=== PATIENT | male | born 1955 | race Caucasian/White ===

== ENCOUNTER → 2021-01-05 08:28 | Outpatient (REF) | payer MEDICARE, SELFPAY ==
--- NOTE | 2021-01-05 08:39 | CA_ITS ---
Transthoracic Echocardiogram Patient (Last, First, Middle): Jeffrey Haque, Gender: Male Date of : 1955 Age: 65 Procedure Date: 01/05/2021 Procedure Type: Transthoracic Echocardiogram Location: OP Height: 167.64 cm Weight: 92.99 kg BSA: 2.02 m2 Heart Rate: bpm BP: 134 / 80 mmHg Municipal Maintenance Worker: Referring MD: Evan Aguirre MD Symptoms: R01.1 NEW HEART MURMUR Study Quality: Fair ECG Rhythm: Sinus Conclusions: - The left ventricular systolic function is hyperdynamic. The visually estimated ejection fraction is >70%. - There is moderately increased left ventricular wall thickness. - The basal inferior and basal inferolateral segments are hypokinetic. - The left atrium is moderately dilated. - There is mild mitral valve regurgitation. - There is mild dilatation of the ascending aorta measuring 3.90 cm. Findings Left Ventricle Normal left ventricular cavity size. There is moderately increased left ventricular wall thickness. The left ventricular systolic function is hyperdynamic. The visually estimated ejection fraction is >70%. There is no evidence of regional wall motion abnormalities. E/E prime ratio is between 8 and 15 consistent with indeterminate filling pressures. Evidence suggests grade I (mild) diastolic dysfunction. LVOT gradient noted but there seems to be also mixing with the mitral jet and hence doubt accuracy. Wall Motion Rest Echo Findings The basal inferior and basal inferolateral segments are hypokinetic. Right Ventricle Normal right ventricular cavity size and systolic function. Atria The left atrium is moderately dilated. The right atrium is normal in size. Aortic Valve There is a normal trileaflet aortic valve. There is no aortic valve regurgitation. Gradients across aortic valve or elevated most likely from hyperdynamic stay. Doubt any significant aortic stenosis. Mitral Valve The mitral valve appears normal. There is mild mitral valve regurgitation. There is no mitral valve stenosis. Pulmonic Valve The pulmonic valve was not well visualized. Tricuspid Valve The tricuspid valve was not well visualized. There is trace tricuspid valve regurgitation. The pulmonary artery systolic pressure is normal. Great Vessels There is mild dilatation of the ascending aorta measuring 3.90 cm. Venous The inferior vena cava is normal in size and collapses greater than 50% with inspiration. Pericardium/Pleural There is no evidence of pericardial effusion. Prior Study Comparison No prior study available for comparison. Measurements 2D Linear Measurements IVSd: 1.57 0.6-0.9/0.6-1.0 cm LVIDd: 4.64 3.9-5.3/4.2-5.9 cm LVIDd Index: 2.30 2.4-3.2/2.2-3.1 cm/m2 LVIDs: 2.94 2.0-3.6 cm LVPWd: 1.46 0.7-1.1 cm Ao Root: 3.30 2.1-3.5 cm LA Diam: 4.50 2.7-3.8/3.0-4.0 cm LAIDs Index: 2.23 1.5-2.3 cm/m2 LV Mass: 365.37 67-162/88-224 g LV Mass Index: 180.88 43-95/49-115 g/m2 LVOT Diam: 2.20 3.0+(-)1.3 cm Mitral Valve MV Pk E: 0.78 MV PK A: 1.15 MV Decel Time: 333.00 E/A: 0.70 E'Lateral: 9.68 E'Medial: 5.11 E/E' Med: 15.30 E/E' Lat: 8.10 PHT: 97.00 MVA PHT: 2.27 Decel [place]: 2.34 Aortic Valve AoV Pk Chapo: 3.03 AoV Mn Chapo: 2.11 AoV VTI: 0.65 AoV Pk Grad: 37.00 Aov Mn Grad: 20.00 LESLIE Cont.VTI: 1.92 LVOT LVOT Pk Chapo: 1.39 LVOT Mn Chapo: 1.01 LVOT VTI: 0.33 LVOT Pk Grad: 8.00 LVOT Mn Grad: 5.00 LVOT Diam: 2.20 LVOT Area: 3.80 Diastolic Function MV Pk E: 0.78 MV Pk A: 1.15 E/A: 0.70 E'Medial: 5.11 E/E' Med: 15.30 E' Laterial: 9.68 E/E' Lat: 8.10 Right Ventricle TAPSE (mm): 30.00 TVS' Chapo: 20.00 Tricuspid Valve TR Pk Chapo: 2.47 TR Pk Grad: 24.00 Great Vessels Aorta Ao Root-2D: 3.30 2.0-3.7 cm Ao Asc: 3.90 2.1-3.4 cm Pulmonary Valve PV Pk Chapo: 1.14 Peak PV Grad: 5.00 Updated in Other Vendor System with Status of Final Herson Aleman MD electronically signed on 01/06/2021 11:02:09 AM with status of Final
== END ==
LOC: HO.CARD 08:28
PROVIDERS: PCP Internal Medicine; Visit Provider Internal Medicine
DX: R01.1 Cardiac murmur, unspecified (principal)
CPT/HCPCS: 93306

== ENCOUNTER → 2021-02-22 09:45 | Outpatient (REF) | payer MEDICARE, SELFPAY ==
--- NOTE | 2021-02-22 09:50 | CA_ITS ---
Acquisition Time: 2021-02-22 09:55:32 Total Exercise Time: 00:06:16 Test Indications: ABN ECHO Medications: SEE CHART Protocol: OLGA Max HR: 115 BPM 74% of Pred: 155 BPM Max BP: 178/088 mmHG Max Work Load: 7.4 METS Exercise stress test with exercise 6 min 16 sec of Olga protocol, achieving 74% MPHR and request to stop due to knee pain, with mild sob, no chest discomfort, without arrythmia, with normotensive response to exercise, with nondiagnostic EKG for ischemia due to suboptimal heart rate. Test reviewed with Dr Christopher. Called Dr Aguirre office with above report and recommended pharmacological nuclear stress test for further evaluation. Referred By: Evan Aguirre Overread By: KAIDEN WALKER
== END ==
LOC: HO.CARD 09:45
PROVIDERS: PCP Internal Medicine; Visit Provider Internal Medicine
DX: R93.1 Abnormal findings on diagnostic imaging of heart and coronary circulation (principal)
CPT/HCPCS: 93017

== ENCOUNTER → 2021-03-02 09:32 | Outpatient (REF) | payer MEDICARE, SELFPAY ==
--- NOTE | ~2021-03-02 | NM_ITS ---
Lexiscan Myocardial perfusion study Indication: Abnormal echocardiogram, assess for coronary disease and ischemia Technique: The patient was brought in for a Lexiscan perfusion study on 03/02/2021 and was injected 0.4 mg of Lexiscan intravenously. Within a minute of this injection 30 mCi of sestamibi was given intravenously. Images were obtained using the SPECT gamma camera interlaced with the gating device. Images were obtained in supine position. Resting perfusion study was performed on 03/07/2021. Patient was administered 30 mCi of sestamibi intravenously at rest. Images were then obtained in supine position. Total DLP 113mGy-cm. Images were processed with the software and compared side to side in short axis, horizontal long axis and vertical long axis views. Findings: Raw acquisition was reviewed. The stress perfusion study showed diminished tracer uptake along the basal inferior, basal inferior septal wall. There is improvement with CT attenuation correction and hence could be from diaphragmatic attenuation artifact The gated study shows normal LV systolic function with calculated LVEF of 65%. LV cavity is normal in size. The gated study shows basal inferior hypokinesis. Resting study shows diminished tracer uptake in the basal inferior and adjacent inferior septal wall. There is improvement with CT attenuation correction and hence could be from components of diaphragmatic attenuation artifact. Gating at rest reveals ejection fraction at 65%; basal inferior hypokinesis. The findings are consistent with fixed basal inferior defect but with improvement during CT attenuation correction. NM/NM milton perf SPECT rest & str Impression: 1. Myocardial perfusion imaging study shows fixed basal inferior/inferior septal defect but with improvement during CT attenuation correction. Could be from nontransmural infarct +/- diaphragmatic attenuation artifact. 2. Gated LVEF is 65% during stress and rest. 3. Transient ischemic dilatation not present. EKG component of the test reported separately.
--- NOTE | 2021-03-02 09:30 | CA_ITS ---
Acquisition Time: 2021-03-02 09:31:57 Total Exercise Time: 00:02:00 Test Indications: ABN ECHO Medications: SEE CHART Protocol: LEXISCAN Max HR: 169 BPM 109% of Pred: 155 BPM Max BP: 160/088 mmHG Max Work Load: 1.6 METS Pharmacological stress test with Lexiscan injection, while walking on treadmill, without anginal symptoms, without arrythmia, with normotensive response to injection, with nondiagnostic EKG for ischemia. Nuclear images pending. Test reviewed with Dr Rios. Referred By: Evan Aguirre Overread By: KAIDEN WALKER
== END ==
LOC: HO.CARD 09:32
PROVIDERS: Visit Provider Internal Medicine
DX: I34.0 Nonrheumatic mitral (valve) insufficiency (principal); R07.9 Chest pain, unspecified
CPT/HCPCS: 78452; 93017; A9500; J0280; J2785

== ENCOUNTER → 2021-03-16 08:35 | Outpatient (BNVA) | payer MEDICARE, SELFPAY | PROVIDERS: PCP Internal Medicine; Visit Provider Internal Medicine | DX: I25.10 Atherosclerotic heart disease of native coronary artery without angina pectoris (principal); I10 Essential (primary) hypertension | CPT/HCPCS: 93005; 99202 ==

== ENCOUNTER 2021-03-21 10:35 | Outpatient (REF) | payer MEDICARE, SELFPAY ==
[2021-03-21 10:57] LABS: MANUAL DIFF FLAG NO
[2021-03-21 11:23] LABS: Basophils Percent Auto 0.4 % (0-2); Eosinophils Absolute Auto 0.3 X10*3/uL (0.0-0.4); Eosinophils Percent Auto 4.8 % (0-4); Hematocrit 42.3 % (42.0-52.0); Hemoglobin 14.2 g/dl (14.0-18.0); Imm Gran Abs Auto 0.05 X10*3/uL (0.00-0.03); Lymphocytes Absolute Auto 2.3 X10*3/uL (1.2-4.9); Mean Corpuscular HGB Conc 33.6 g/dl (31.0-36.0); Mean Corpuscular Hemoglobin 29.8 pg (27.0-33.0); Mean Corpuscular Volume 88.9 fL (80.0-98.0); Mean Platelet Volume 10.3 fL (9.4-12.4); Monocytes Absolute Auto 0.5 X10*3/uL (0.1-1.2); Monocytes Percent Auto 9.5 % (2-11); Neutrophils Absolute Auto 2.2 x10*3/uL (2.0-8.3); Neutrophils Percent Auto 41.3 % (45-73); Platelet Count 182 X10*3/uL (160-400); Red Blood Count 4.76 X10*6/uL (4.60-5.80); Red Cell Distribution Width 11.9 % (11.0-16.0); White Blood Count 5.3 X10*3/uL (4.8-10.8)
[2021-03-21 11:29] LABS: Prothrombin Time 11.8 SEC (9.9-13.0)
[2021-03-21 12:33] LABS: Anion Gap 11 (12-20); Blood Urea Nitrogen 17 mg/dL (9-16); Calcium 9.6 mg/dL (8.4-10.2); Carbon Dioxide 30 mmol/L (22-29); Chloride 103 mmol/L (96-108); Estimated Glomerular Filt Rate > 60; Glucose Random 102 mg/dL (60-115); Potassium 4.6 mmol/L (3.3-5.1); Sodium 139 mmol/L (135-145)
== END 2021-03-21 10:36 | disposition home or self-care (01) ==
LOC: HO.LAB 10:35
PROVIDERS: PCP Internal Medicine; Visit Provider Internal Medicine
DX: I25.10 Atherosclerotic heart disease of native coronary artery without angina pectoris (principal)
CPT/HCPCS: 36415; 80048; 85025; 85610

== ENCOUNTER → 2021-04-04 14:59 | Outpatient (BNVA) | payer MEDICARE, SELFPAY | PROVIDERS: PCP Internal Medicine; Referring Provider Internal Medicine; Visit Provider Nurse Practitioner Family | DX: R94.31 Abnormal electrocardiogram [ECG] [EKG] (principal); Z98.890 Other specified postprocedural states | CPT/HCPCS: 99212 ==

== ENCOUNTER 2021-04-06 10:16 | Outpatient (REF) | payer MEDICARE, SELFPAY ==
[2021-04-06 12:00] LABS: Cholesterol 181 mg/dL; HDL Cholesterol 57 mg/dL; LDL Cholesterol Calculated 105 mg/dl; Triglycerides 95 mg/dL
== END 2021-04-06 10:17 | disposition home or self-care (01) ==
LOC: HO.LAB 10:16
PROVIDERS: Visit Provider Nurse Practitioner Family
DX: I10 Essential (primary) hypertension (principal); I25.10 Atherosclerotic heart disease of native coronary artery without angina pectoris
CPT/HCPCS: 36415; 80061

== ENCOUNTER 2021-04-19 10:50 | Outpatient (REF) | payer MEDICARE, SELFPAY ==
[2021-04-19 10:53] LABS: MANUAL DIFF FLAG NO
[2021-04-19 10:55] LABS: Basophils Percent Auto 0.5 % (0-2); Eosinophils Absolute Auto 0.2 X10*3/uL (0.0-0.4); Eosinophils Percent Auto 4.2 % (0-4); Hematocrit 44.2 % (42.0-52.0); Hemoglobin 14.4 g/dl (14.0-18.0); Imm Gran Abs Auto 0.03 X10*3/uL (0.00-0.03); Imm Gran Pct Auto 0.5 % (0.0-0.4); Lymphocytes Absolute Auto 2.4 X10*3/uL (1.2-4.9); Lymphocytes Percent Auto 40.8 % (20-40); Mean Corpuscular HGB Conc 32.6 g/dl (31.0-36.0); Mean Corpuscular Volume 92.1 fL (80.0-98.0); Mean Platelet Volume 10.7 fL (9.4-12.4); Monocytes Absolute Auto 0.5 X10*3/uL (0.1-1.2); Monocytes Percent Auto 9.4 % (2-11); Neutrophils Absolute Auto 2.6 x10*3/uL (2.0-8.3); Neutrophils Percent Auto 44.6 % (45-73); Platelet Count 150 X10*3/uL (160-400); Red Cell Distribution Width 12.3 % (11.0-16.0); White Blood Count 5.8 X10*3/uL (4.8-10.8)
== END 2021-04-19 10:51 | disposition home or self-care (01) ==
LOC: HO.LNP 10:50
PROVIDERS: PCP Internal Medicine; Visit Provider Internal Medicine
DX: D72.820 Lymphocytosis (symptomatic) (principal)
CPT/HCPCS: 85025

== ENCOUNTER 2021-06-23 11:28 | Outpatient (REF) | payer MEDICARE, SELFPAY ==
[2021-06-23 11:30] LABS: MANUAL DIFF FLAG NO
[2021-06-23 11:46] LABS: Basophils Percent Auto 0.4 % (0-2); Eosinophils Absolute Auto 0.3 X10*3/uL (0.0-0.4); Eosinophils Percent Auto 6.5 % (0-4); Hematocrit 40.2 % (42.0-52.0); Hemoglobin 12.9 g/dl (14.0-18.0); Imm Gran Abs Auto 0.02 X10*3/uL (0.00-0.03); Imm Gran Pct Auto 0.4 % (0.0-0.4); Lymphocytes Absolute Auto 2.4 X10*3/uL (1.2-4.9); Lymphocytes Percent Auto 49.9 % (20-40); Mean Corpuscular HGB Conc 32.1 g/dl (31.0-36.0); Mean Corpuscular Hemoglobin 28.7 pg (27.0-33.0); Mean Corpuscular Volume 89.3 fL (80.0-98.0); Mean Platelet Volume 11.1 fL (9.4-12.4); Monocytes Absolute Auto 0.6 X10*3/uL (0.1-1.2); Monocytes Percent Auto 11.9 % (2-11); Neutrophils Absolute Auto 1.5 x10*3/uL (2.0-8.3); Neutrophils Percent Auto 30.9 % (45-73); Platelet Count 158 X10*3/uL (160-400); Red Cell Distribution Width 12.9 % (11.0-16.0); White Blood Count 4.8 X10*3/uL (4.8-10.8)
== END 2021-06-23 11:29 | disposition home or self-care (01) ==
LOC: HO.LNP 11:28
PROVIDERS: PCP Internal Medicine; Visit Provider Internal Medicine
DX: D72.820 Lymphocytosis (symptomatic) (principal)
CPT/HCPCS: 85025

== ENCOUNTER 2021-09-20 10:34 | Outpatient (REF) | payer MEDICARE, SELFPAY ==
[2021-09-20 10:36] LABS: MANUAL DIFF FLAG NO
[2021-09-20 11:00] LABS: Basophils Percent Auto 0.5 % (0-2); Eosinophils Absolute Auto 0.2 X10*3/uL (0.0-0.4); Eosinophils Percent Auto 3.8 % (0-4); Hematocrit 40.6 % (42.0-52.0); Hemoglobin 13.2 g/dl (14.0-18.0); Imm Gran Abs Auto 0.05 X10*3/uL (0.00-0.03); Imm Gran Pct Auto 0.9 % (0.0-0.4); Lymphocytes Absolute Auto 2.2 X10*3/uL (1.2-4.9); Lymphocytes Percent Auto 37.9 % (20-40); Mean Corpuscular HGB Conc 32.5 g/dl (31.0-36.0); Mean Corpuscular Hemoglobin 29.7 pg (27.0-33.0); Mean Corpuscular Volume 91.2 fL (80.0-98.0); Mean Platelet Volume 11.5 fL (9.4-12.4); Monocytes Absolute Auto 0.5 X10*3/uL (0.1-1.2); Monocytes Percent Auto 8.5 % (2-11); Neutrophils Absolute Auto 2.8 x10*3/uL (2.0-8.3); Neutrophils Percent Auto 48.4 % (45-73); Platelet Count 168 X10*3/uL (160-400); Red Blood Count 4.45 X10*6/uL (4.60-5.80); Red Cell Distribution Width 13.1 % (11.0-16.0); White Blood Count 5.9 X10*3/uL (4.8-10.8)
== END 2021-09-20 10:35 | disposition home or self-care (01) ==
LOC: HO.LNP 10:34
PROVIDERS: Visit Provider Internal Medicine
DX: D72.820 Lymphocytosis (symptomatic) (principal)
CPT/HCPCS: 85025

== ENCOUNTER 2021-09-21 07:11 | Day surgery (SDC) | payer MEDICARE, SELFPAY ==
[2021-07-12 15:48] VITALS: BMI 31.6
--- NOTE | 2021-07-15 09:49 | HO.ANESPROP2 ---
HPI - Anesthesia Eval Consult details Narrative: Rescheduled to 09/2021 66yo M for Colonoscopy Optimized per cardiology if no new cardiac complaints. [facility] Active Problems Active Problems: All Active Problems (Updated 04/04/21 @ 16:25 by Suzette Martinez NP-C) Preop cardiovascular exam (Acute) Mitral regurgitation (Acute) LVH (left ventricular hypertrophy) (Acute) Old inferior wall myocardial infarction (Acute) S/P cardiac catheterization (Acute) Essential hypertension (Acute) Atherosclerotic cardiovascular disease (Acute) Past Medical History Medical History (Updated 07/15/21 @ 09:51 by Reena Vicente NP) Atherosclerotic cardiovascular disease LVH (left ventricular hypertrophy) Mitral regurgitation Old inferior wall myocardial infarction Family History Family History Mother No problems noted. Father No problems noted. Surgical History Surgical History (Updated 07/15/21 @ 12:12 by Mona Tolentino RN) History of left knee replacement Hx of arthroscopy of knee Hx of colonoscopy Social History Social History Alcohol intake: current Alcohol intake frequency: 3 or more drinks per day Patient Tobacco Use Status: Never used Tobacco Meds Allergies Allergy/AdvReac Type Severity Reaction Status Date / Time No Known Allergies Allergy Verified 04/04/21 15:02 Home Medications Medication Instructions Recorded Confirmed Last Taken Type lisinopril 10 1 tab PO DAILY 03/16/21 04/04/21 Unknown History mg-hydrochlorothiazide 12.5 mg tablet Exam Exam Date and Time: July 15, 2021 0949 Height,Weight and Vital Signs: Height 5 ft 5 in Weight 86.183 kg Pertinent Lab Results Pertinent Lab Results: Laboratory Tests 03/21/21 06/23/21 10:55 07:40 WBC 4.8 Hgb 12.9 L Hct 40.2 L Plt Count 158 L Sodium 139 Potassium 4.6 Chloride 103 Carbon Dioxide 30 H BUN 17 H Creatinine 0.84 Narrative Narrative: Per 03/2021 cardiac office note: Echo done to eval heart murmur on 01/05/2021 showing hyperdynamic EF greater than 70%, moderate LVH, basal inferior and basal inferior lateral segments hypokinetic, left atrium moderately dilated, mild MR, ascending aorta mildly dilated at 3.9 cm.? Patient underwent an exercise stress test on 02/22/2021 which was sub optimal to assess for ischemia.? He had a pharmacological nuclear stress test done on 03/02/2021 showing a fixed basal inferior and inferior septal defect that improves with CT attenuation, could be non transmural infarct plus or minus diaphragm attenuation.? He had no reports of chest discomfort.? He does have shortness of breath with activity.? He underwent a cardiac catheterization for further evaluation showing mild nonobstructive CAD.? Discussed results with Dr. Aleman.? The abnormal echocardiogram findings and abnormal nuclear stress test are suggestive of prior infarct involving the basal inferior region.? This could have been from coronary spasm at some point in time.? Patient does report a history of cocaine use when he was younger.? He does not recall any time where he thought he may have had an [place]. Spent time discussing all the findings with him and he states understanding. Assessment and Plan Assessment Anesthesia Assessment: Chart Reviewed
[2021-09-15 09:18] VITALS: BMI 31.6
--- NOTE | 2021-09-20 08:00 | HO.ANESPROP2 ---
Documented by User: Reena Vicente NP 09/20/21 08:02 HPI - Anesthesia Eval Consult details Narrative: 66yo M for Colonoscopy Daily ETOH Optimized per cardiology if no new cardiac complaints. [facility] Active Problems Active Problems: All Active Problems (Updated 07/15/21 @ 09:51 by Reena Vicente NP) Preop cardiovascular exam (Acute) S/P cardiac catheterization (Acute) Essential hypertension (Acute) Past Medical History Medical History Atherosclerotic cardiovascular disease Essential hypertension LVH (left ventricular hypertrophy) Mitral regurgitation Old inferior wall myocardial infarction Family History Family History Mother No problems noted. Father No problems noted. Surgical History Surgical History History of left knee replacement Hx of arthroscopy of knee Hx of colonoscopy S/P cardiac catheterization Social History Social History Alcohol intake: current Alcohol intake frequency: 0-2 drinks per day Patient Tobacco Use Status: Never used Tobacco Use of substances other than those prescribed or required for medical reasons: No Have you been hit, kicked, punched, or otherwise hurt by someone within the past year? If so, by whom?: No Are you DNR?: No Advance Directives: No Advance Directives Information Provided: Yes Recently lost weight without trying: No Nutrition Risks: No Nutritional Risk Meds Allergies Allergy/AdvReac Type Severity Reaction Status Date / Time No Known Allergies Allergy Verified 04/04/21 15:02 Home Medications Medication Instructions Recorded Confirmed Last Taken Type lisinopril 10 1 tab PO DAILY 03/16/21 04/04/21 Unknown History mg-hydrochlorothiazide 12.5 mg tablet Exam Exam Date and Time: September 20, 2021 0800 Height,Weight and Vital Signs: Height 5 ft 5 in Weight 86.183 kg Pertinent Lab Results Pertinent Lab Results: Laboratory Tests 03/21/21 06/23/21 10:55 07:40 WBC 4.8 Hgb 12.9 L Hct 40.2 L Plt Count 158 L Sodium 139 Potassium 4.6 Chloride 103 Carbon Dioxide 30 H BUN 17 H Creatinine 0.84 Narrative Narrative: Per 03/2021 cardiac office note: Echo done to eval heart murmur on 01/05/2021 showing hyperdynamic EF greater than 70%, moderate LVH, basal inferior and basal inferior lateral segments hypokinetic, left atrium moderately dilated, mild MR, ascending aorta mildly dilated at 3.9 cm.? Patient underwent an exercise stress test on 02/22/2021 which was sub optimal to assess for ischemia.? He had a pharmacological nuclear stress test done on 03/02/2021 showing a fixed basal inferior and inferior septal defect that improves with CT attenuation, could be non transmural infarct plus or minus diaphragm attenuation.? He had no reports of chest discomfort.? He does have shortness of breath with activity.? He underwent a cardiac catheterization for further evaluation showing mild nonobstructive CAD.? Discussed results with Dr. Aleman.? The abnormal echocardiogram findings and abnormal nuclear stress test are suggestive of prior infarct involving the basal inferior region.? This could have been from coronary spasm at some point in time.? Patient does report a history of cocaine use when he was younger.? He does not recall any time where he thought he may have had an [place]. Spent time discussing all the findings with him and he states understanding. Assessment and Plan Assessment Anesthesia Assessment: Chart Reviewed Documented by User: Kelsey Maldonado MD 09/21/21 08:16 [facility] Past Medical History Medical History Atherosclerotic cardiovascular disease Essential hypertension LVH (left ventricular hypertrophy) Mitral regurgitation Old inferior wall myocardial infarction Family History Family History Mother No problems noted. Father No problems noted. Family history of problems with anesthesia: No Surgical History Surgical History History of left knee replacement Hx of arthroscopy of knee Hx of colonoscopy S/P cardiac catheterization History of Problems with Anesthesia: No Social History Social History Alcohol intake: current Alcohol intake frequency: 0-2 drinks per day Patient Tobacco Use Status: Never used Tobacco Use of substances other than those prescribed or required for medical reasons: No Have you been hit, kicked, punched, or otherwise hurt by someone within the past year? If so, by whom?: No Are you DNR?: No Advance Directives: No Advance Directives Information Provided: Yes Recently lost weight without trying: No Nutrition Risks: No Nutritional Risk Meds Allergies Allergy/AdvReac Type Severity Reaction Status Date / Time No Known Allergies Allergy Verified 04/04/21 15:02 Home Medications Medication Instructions Recorded Confirmed Last Taken Type lisinopril 10 1 tab PO DAILY 03/16/21 04/04/21 Unknown History mg-hydrochlorothiazide 12.5 mg tablet Exam Airway Mallampati Class: II TM Dist: >3cm Neck ROM: Full Heart: rrr Lungs: cta Assessment and Plan Assessment Anesthesia Assessment: Anesthesia Plan Discussed and Chart Reviewed Final Anesthetic Review Family History of Problems with Anesthesia: No History of Problems with Anesthesia: No NPO: Yes ASA Class: III Final Preanesthetic Review: No Changes in Pt Med Stat, Meds/Allgs Chart Reviewed and Consent Obtained/Reviewed Patient Risk: Intermediate Procedure Risk: Intermediate Anesthetic Plan Anesthetic Plan: MAC: Disposition: Standard PACU
[2021-09-21] MEDS: Ampicillin Sodium 2 GM in 0.9 % Sodium Chloride 100 ML IV (07:47)
[2021-09-21] MEDS: Lactated Ringers 1,000 ML 100 ML IVCONT (07:47)
[2021-09-21 07:48] VITALS: BP 150/80; PULSE 52; RESP 18; TEMP 36.2; O2SAT 98; BMI 31.5
--- NOTE | 2021-09-21 09:43 | PM.OP ---
Brief Operative Note Date of Service: 09/21/21 Pre-op diagnosis: Screening Post-op diagnosis: other (Colon polyp) Procedure: Colonoscopy to the cecum with cold snare polypectomy Surgeon: Rubén Enriquez Anesthesia: MAC Was an It Risk And Assurance Manager used for this Procedure?: No Estimated blood loss (mL): 2.0 Pathology: other (A. Polyp at 15cm) Condition: stable Disposition: PACU
[2021-09-21 09:46] VITALS: BP 115/70; PULSE 67; RESP 20; TEMP 36.2; O2SAT 97
[2021-09-21 10:00] VITALS: BP 119/63; PULSE 51; RESP 16; TEMP 36.2; O2SAT 97
--- NOTE | 2021-09-21 21:28 | OP_ITS ---
SURGEON: Rubén Enriquez MD INDICATIONS: The patient presents for evaluation of personal history of tubular adenoma of the colon and colorectal cancer screening. Full consent obtained from him for this, including risks of bleeding and perforation. PREOPERATIVE DIAGNOSIS: Personal history of tubular adenoma of the colon, and colorectal cancer screening. POSTOPERATIVE DIAGNOSIS: Personal history of tubular adenoma of the colon, and colorectal cancer screening, small colon polyp, diverticulosis, internal hemorrhoids. PROCEDURE PERFORMED: Colonoscopy to the cecum with cold snare polypectomy. ESTIMATED BLOOD LOSS: COMPLICATIONS: ANESTHESIA: Monitored anesthesia care. ASSISTANTS: SPECIMENS: DESCRIPTION OF PROCEDURE: The patient was placed in the left lateral decubitus position. The digital rectal exam revealed no abnormalities. The Olympus video pediatric colonoscope was entered into the rectum and advanced easily to the cecum. Once in the cecum, I did identify normal-appearing cecal pouch with appendiceal orifice and a normal-appearing ileocecal valve. The entire cecum and ileocecal valve appeared normal. The scope was slowly withdrawn assessing all mucosal surfaces carefully. Preparation was excellent. At 15 cm, was an approximately 5 or 6 mm polyp, which was removed by cold snare polypectomy and recovered by suction. The polypectomy site appeared clean, without any sign of residual polyp, nor bleeding. I did not visualize any other polyps, colitis, or angiodysplasia. There was a moderate amount of diverticulosis noted in the ascending colon, descending colon, and sigmoid colon. In the rectum, scope was retroflexed visualizing internal hemorrhoids, but no other pathology. The rectal mucosa appeared normal. The scope was straightened and withdrawn the patient. He tolerated the procedure well and was returned to the recovery area in stable condition. IMPRESSION: 1. Colon polyp. 2. Diverticulosis. 3. Internal hemorrhoids. PLAN: The results of the pathology will be checked. I would recommend a repeat colonoscopy in 5 years for further surveillance. He was advised not to use any aspirin and NSAIDs for 1 week. He did receive antibiotics prior to the procedure in regard to his recent knee replacement and was given a prescription to use amoxicillin later today. MD EVERETT Licea/NAZIA / [id number]
== END 2021-09-21 11:33 | disposition home or self-care (01) ==
PROVIDERS: PCP Internal Medicine; Visit Provider Internal Medicine
PROC: 0DJD8ZZ Inspection of Lower Intestinal Tract, Via Natural or Artificial Opening Endoscopic (ICD-10-PCS; CPT 45378; principal; 2021-09-21 08:40)
DX: Z12.11 Encounter for screening for malignant neoplasm of colon (principal); Z86.010 Personal history of colon polyps; K63.5 Polyp of colon; K57.30 Diverticulosis of large intestine without perforation or abscess without bleeding; K64.8 Other hemorrhoids; I10 Essential (primary) hypertension; R01.1 Cardiac murmur, unspecified; Z79.82 Long term (current) use of aspirin; Z79.899 Other long term (current) drug therapy; Z96.652 Presence of left artificial knee joint
CPT/HCPCS: 45385; 88305; J0290; J1580

== ENCOUNTER 2021-11-09 11:54 | Outpatient (REF) | payer MEDICARE, SELFPAY ==
[2021-11-09 12:17] LABS: MANUAL DIFF FLAG NO
[2021-11-09 12:24] LABS: Basophils Percent Auto 0.3 % (0-2); Eosinophils Absolute Auto 0.2 X10*3/uL (0.0-0.4); Hematocrit 39.3 % (42.0-52.0); Hemoglobin 13.4 g/dl (14.0-18.0); Imm Gran Abs Auto 0.04 X10*3/uL (0.00-0.03); Imm Gran Pct Auto 0.6 % (0.0-0.4); Lymphocytes Absolute Auto 2.1 X10*3/uL (1.2-4.9); Lymphocytes Percent Auto 32.8 % (20-40); Mean Corpuscular HGB Conc 34.1 g/dl (31.0-36.0); Mean Corpuscular Hemoglobin 30.8 pg (27.0-33.0); Mean Corpuscular Volume 90.3 fL (80.0-98.0); Mean Platelet Volume 10.2 fL (9.4-12.4); Monocytes Absolute Auto 0.4 X10*3/uL (0.1-1.2); Monocytes Percent Auto 6.5 % (2-11); Neutrophils Absolute Auto 3.7 x10*3/uL (2.0-8.3); Neutrophils Percent Auto 56.8 % (45-73); Platelet Count 157 X10*3/uL (160-400); Red Blood Count 4.35 X10*6/uL (4.60-5.80); White Blood Count 6.4 X10*3/uL (4.8-10.8)
[2021-11-09 12:30] LABS: Prothrombin Time 11.4 SEC (10.0-13.1)
[2021-11-09 12:33] LABS: Partial Thromboplastin Time 32.9 SEC (26.0-36.4)
[2021-11-09 12:41] LABS: Anion Gap 14 (12-20); Blood Urea Nitrogen 19 mg/dL (9-16); Carbon Dioxide 28 mmol/L (22-29); Chloride 103 mmol/L (96-108); Estimated Glomerular Filt Rate > 60; Sodium 141 mmol/L (135-145)
[2021-11-09 13:26] LABS: Appearance Urine Clear; Color Urine Yellow; Glucose Urine UA Negative (Negative); Leukocyte Esterase Urine Negative (Negative); Nitrite Urine Negative (Negative); Urine Blood Negative (Negative); Urine Ketones Negative (Negative); Urine Protein Negative (Neg-Trace)
== END 2021-11-09 11:55 | disposition home or self-care (01) ==
LOC: HO.LAB 11:54
PROVIDERS: PCP Internal Medicine; Visit Provider Orthopaedic Surgery
DX: Z01.818 Encounter for other preprocedural examination (principal)
CPT/HCPCS: 36415; 80051; 81003; 82565; 84520; 85025; 85610; 85730

== ENCOUNTER 2023-06-05 10:55 | Outpatient (REF) | payer MEDICARE, SELFPAY ==
[2023-06-05 10:59] LABS: MANUAL DIFF FLAG NO
[2023-06-05 11:31] LABS: Basophils Absolute Auto 0.1 X10*3/uL (0.0-0.2); Eosinophils Absolute Auto 0.4 X10*3/uL (0.0-0.4); Eosinophils Percent Auto 7.8 % (0-4); Hematocrit 42.8 % (42.0-52.0); Hemoglobin 14.4 g/dl (14.0-18.0); Imm Gran Abs Auto 0.03 X10*3/uL (0.00-0.03); Imm Gran Pct Auto 0.6 % (0.0-0.4); Lymphocytes Absolute Auto 1.8 X10*3/uL (1.2-4.9); Mean Corpuscular HGB Conc 33.6 g/dl (31.0-36.0); Mean Corpuscular Hemoglobin 30.8 pg (27.0-33.0); Mean Corpuscular Volume 91.6 fL (80.0-98.0); Mean Platelet Volume 11.5 fL (9.4-12.4); Monocytes Absolute Auto 0.6 X10*3/uL (0.1-1.2); Monocytes Percent Auto 10.7 % (2-11); Neutrophils Absolute Auto 2.4 x10*3/uL (2.0-8.3); Neutrophils Percent Auto 45.9 % (45-73); Platelet Count 167 X10*3/uL (160-400); Red Blood Count 4.67 X10*6/uL (4.60-5.80); White Blood Count 5.2 X10*3/uL (4.8-10.8)
[2023-06-05 11:38] LABS: Appearance Urine Clear; Color Urine Yellow; Glucose Urine UA Negative (Negative); Leukocyte Esterase Urine Negative (Negative); Nitrite Urine Negative (Negative); Urine Blood Negative (Negative); Urine Ketones Negative (Negative); Urine Protein Negative (Neg-Trace)
[2023-06-05 11:41] LABS: Bacteria Urine None Seen (None Seen); Hyaline Casts Urine 0-2 /LPF (0-2); RBC Urine 0-2 /HPF (0-2); Squamous Epithelial Cell Urine 0-2 /HPF (0-2); WBC Urine 0-5 /HPF (0-5)
[2023-06-05 12:01] LABS: Alanine Aminotransferase 22 U/L (0-40); Albumin Level 4.2 g/dL (3.5-5.0); Alkaline Phosphatase 80 U/L (39-117); Anion Gap 12 (12-20); Aspartate Amino Transferase 24 U/L (5-37); Bilirubin Total 0.6 mg/dL (0.0-1.0); Blood Urea Nitrogen 14 mg/dL (9-16); Calcium 9.5 mg/dL (8.4-10.2); Carbon Dioxide 26 mmol/L (22-29); Chloride 107 mmol/L (96-108); Cholesterol 151 mg/dL (<200); Estimated Glomerular Filt Rate > 60; Glucose Fasting 102 mg/dL (60-99); HDL Cholesterol 53 mg/dL (>40); LDL Cholesterol Calculated 67 mg/dL (<100); Potassium 3.9 mmol/L (3.3-5.1); Sodium 141 mmol/L (135-145); Total Protein 6.8 g/dL (6.5-8.0); Triglycerides 156 mg/dL (<150)
[2023-06-05 12:12] LABS: PSA,Total (Free>4and<10) 0.55 ng/mL (0.00-4.00)
[2023-06-05 12:45] LABS: Creatinine Urine 146.53 mg/dL; Microalbumin Urine < 5.0 mg/L
[2023-06-05 15:12] LABS: Estimated Average Glucose 108 mg/dL; Hemoglobin A1c % 5.4 % (<6.0)
== END 2023-06-05 10:56 | disposition home or self-care (01) ==
LOC: HO.LNP 10:55
PROVIDERS: Visit Provider Internal Medicine
DX: Z00.00 Encounter for general adult medical examination without abnormal findings (principal); Z12.5 Encounter for screening for malignant neoplasm of prostate; I10 Essential (primary) hypertension; R73.03 Prediabetes; D72.820 Lymphocytosis (symptomatic)
CPT/HCPCS: 80053; 80061; 81001; 82043; 82570; 83036; 84153; 85025

== ENCOUNTER 2023-12-07 11:15 | Outpatient (REF) | payer MEDICARE, SELFPAY ==
[2023-12-07 12:12] LABS: Estimated Average Glucose 108 mg/dL; Hemoglobin A1c % 5.4 % (<6.0); Total Hemoglobin (HGBA1C) 3628.0846 umol/L
[2023-12-07 13:28] LABS: Alanine Aminotransferase 31 U/L (0-40); Albumin Level 4.1 g/dL (3.5-5.0); Alkaline Phosphatase 84 U/L (39-117); Aspartate Amino Transferase 40 U/L (5-37); Bilirubin Direct 0.2 mg/dL (0.0-0.5); Bilirubin Total 0.4 mg/dL (0.0-1.0); Cholesterol 140 mg/dL (<200); Glucose Fasting 112 mg/dL (60-99); HDL Cholesterol 53 mg/dL (>40); LDL Cholesterol Calculated 69 mg/dL (<100); Total Protein 6.6 g/dL (6.5-8.0); Triglycerides 92 mg/dL (<150)
[2023-12-07 13:58] LABS: Reflex LDLD? No
== END 2023-12-07 11:16 | disposition home or self-care (01) ==
LOC: HO.LNP 11:15
PROVIDERS: Visit Provider Internal Medicine
DX: R73.09 Other abnormal glucose (principal); I25.10 Atherosclerotic heart disease of native coronary artery without angina pectoris
CPT/HCPCS: 80061; 80076; 82947; 83036

== ENCOUNTER 2024-06-06 10:29 | Outpatient (REF) | payer MEDICARE, SELFPAY ==
[2024-06-06 10:34] LABS: MANUAL DIFF FLAG NO
[2024-06-06 10:42] LABS: Basophils Percent Auto 0.8 % (0-2); Eosinophils Absolute Auto 0.3 X10*3/uL (0.0-0.4); Eosinophils Percent Auto 5.3 % (0-4); Hematocrit 41.1 % (42.0-52.0); Hemoglobin 13.5 g/dl (14.0-18.0); Imm Gran Abs Auto 0.02 X10*3/uL (0.00-0.03); Imm Gran Pct Auto 0.4 % (0.0-0.4); Lymphocytes Absolute Auto 1.7 X10*3/uL (1.2-4.9); Lymphocytes Percent Auto 33.5 % (20-40); Mean Corpuscular HGB Conc 32.8 g/dl (31.0-36.0); Mean Corpuscular Hemoglobin 29.9 pg (27.0-33.0); Mean Corpuscular Volume 90.9 fL (80.0-98.0); Monocytes Absolute Auto 0.4 X10*3/uL (0.1-1.2); Monocytes Percent Auto 8.2 % (2-11); Neutrophils Absolute Auto 2.7 x10*3/uL (2.0-8.3); Neutrophils Percent Auto 51.8 % (45-73); Platelet Count 177 X10*3/uL (160-400); Red Blood Count 4.52 X10*6/uL (4.60-5.80); Red Cell Distribution Width 12.5 % (11.0-16.0); White Blood Count 5.1 X10*3/uL (4.8-10.8)
[2024-06-06 10:54] LABS: Appearance Urine Clear; Color Urine Yellow; Glucose Urine UA Negative (Negative); Leukocyte Esterase Urine Negative (Negative); Nitrite Urine Negative (Negative); PH 5.5 (5.0-9.0); Urine Blood Negative (Negative); Urine Ketones Trace mg/dL (Negative); Urine Protein Negative (Neg-Trace)
[2024-06-06 11:01] LABS: Bacteria Urine None Seen (None Seen); Hyaline Casts Urine 0-2 /LPF (0-2); RBC Urine 0-2 /HPF (0-2); Squamous Epithelial Cell Urine 0-2 /HPF (0-2); WBC Urine 0-5 /HPF (0-5)
[2024-06-06 11:04] LABS: Alanine Aminotransferase 39 U/L (0-40); Albumin Level 4.1 g/dL (3.5-5.0); Alkaline Phosphatase 89 U/L (39-117); Anion Gap 11 (12-20); Aspartate Amino Transferase 37 U/L (5-37); Bilirubin Total 0.4 mg/dL (0.0-1.0); Blood Urea Nitrogen 15 mg/dL (9-16); Calcium 9.3 mg/dL (8.4-10.2); Carbon Dioxide 29 mmol/L (22-29); Chloride 107 mmol/L (96-108); Estimated Glomerular Filt Rate > 60; Glucose Fasting 103 mg/dL (60-99); Sodium 143 mmol/L (135-145); Total Protein 6.4 g/dL (6.5-8.0)
[2024-06-06 11:12] LABS: Estimated Average Glucose 105 mg/dL; Hemoglobin A1C 121.4524 umol/L; Hemoglobin A1c % 5.3 % (<6.0); Total Hemoglobin (HGBA1C) 3508.4698 umol/L
[2024-06-06 11:13] LABS: PSA,Total (Free>4and<10) 0.69 ng/mL (0.00-4.00)
[2024-06-06 11:24] LABS: Creatinine Urine 168.84 mg/dL; Microalbum/Creatinine Ratio Ur 4.1 ug/mg cr (<30)
--- OUTSIDE RECORDS SUMMARY | 2024-06-06 11:33 | XMS_ITS ---
Author Organization Evan Aguirre MD Address [address] [place], [place] [phone] Care Team Providers Care Medical Clerical Assistant Name Role Phone Evan Aguirre Primary Care Provider REASON FOR VISIT Derm Encounters Encounter Location Date Provider Diagnosis Evan Aguirre MD [address] [place], [place] [phone] 05/08/2024 Evan Aguirre Plan Of Treatment Next Appt Details Provider Name:Evan Lucas ier, 06/13/2024 01:00:00 PM, [address], [address], [place], [place], [phone], Progress Notes * Jeffrey WILSON WDOB:1955 (68 yo M)Acc No.[id number]:05/08/2024 Patient:?Jeffrey WILSON :1955???Age:68 Y???Sex:Male Address:[address] [place] [address] * true * Date:? Generated for Jr garcia/Gregg/Brynitting on:?06/06/2024 11:32 AM EDT
--- OUTSIDE RECORDS SUMMARY | 2024-06-06 11:33 | XMS_ITS ---
Author Organization Evan Aguirre MD Address [address] [place], [place] [phone] Care Team Providers Care Accounting Administrator Name Role Phone Evan Aguirre Primary Care Provider Results Component Value Reference Range Notes Complete Blood Count Auto Di ff (Not yet reviewed by provider) Interpretation: Performing Lab:[facility], [address] [place] [phone] Notes/Report: White Blood Count 5.1 4.8-10.8 X10*3/uL [...] NRBC Abs Auto 0.000 0.0-0.012 X10*3/uL Comprehensive [place]. Panel Fa st (Not yet reviewed by provider) Interpretation: Performing Lab:[facility], [address] [place] [phone] Notes/Report: Sodium 143 135-145 mmol/L Potassium 4.0 [...] Alkaline Phosphatase 89 39-117 U/L PSA,Total (Free>4and<10) (No t yet reviewed by provider) Interpretation: Performing Lab:[address] [phone] Notes/Report: PSA,Total (Free>4and<10) 0.69 0.00-4.00 ng/mL A [...] i Chemiluminescent Microparticle Immunoassay (CMIA) Microalbumin, Random (Not ye t reviewed by provider) Interpretation: Performing Lab:[address] [phone] Notes/Report: Creatinine Urine 168.84 Microalbumin Urine 7.0 Microalbum/Creatinine Ratio Ur 4.1 <30 ug/mg cr Albumin/Creatinine Ratio Reference Ranges: Normal: < 30 ug/mg creatinine Microalbuminuria: 30 - 300 ug/mg creatinine Clinical Albuminuria: > 300 ug/mg creatinine Hemoglobin A1c (Not yet revi ewed by provider) Interpretation: Performing Lab:[address] [phone] Notes/Report: Hemoglobin A1c % 5.3 <6.0 % [...] average glucose, using the formula of the D0Q-Yvenaqf Average Glucose study (ADAG), Diabetes Care, Vol.31,#8, 2007 UA ClnCatch+Micro w/rflx Cul t (Not yet reviewed by provider) Interpretation: Performing Lab:[address] [phone] Notes/Report: Urine, Clean Catch Color Urine Yellow Appearance Urine Clear PH 5.5 5.0-9.0 Glucose Urine UA Negative Negative mg/dL Urine Blood Negative Negative Specific [place] - Urine 1.020 1.005-1.025 Urine Protein Negative [...] Location Date Provider Diagnosis Evan Aguirre MD [address] [place] [address] Drive [address] [place] [phone] 06/06/2024 Evan Aguirre Blood tests for routine [...] Treatment Pending Test Test Name Order Date Complete Blood Count Auto Diff Comprehensive [employer]. Panel Fast Lipid Panel 06/06/2024 PSA,Total (Free>4and<10) 06/06/2024 Microalbumin, Random 06/06/2024 Hemoglobin A1c 06/06/2024 UA ClnCatch+Micro w/rflx Cult 06/06/2024 Next Appt Details Provider Name:Evan garcia, 06/13/2024 01:00:00 PM, [address] [place] [address] Drive, [address], [place], [place], [phone], Progress Notes * Jeffrey WILSON WDOB:1955 (68 yo M)Acc No.[id number]:06/06/2024 Progress Note Patient:?KATIE, Jeffrey W Provider:?Evan Aguirre MD :1955???Age:68 Y???Sex:Male Hipolito e:06/06/2024 Address[place] [id number] Subjective: * Chief Complaints: * ???1. FASTING LABS. * Medical History:? Objective: * Vitals:? Assessment: * Assessment: 1.?Blood tests for routine g eneral physical examination - Z00.00 (Primary)???2.?Essential hypertension - I10???3.?Prediabetes - R73.09???4.?Lymphocytosis - D72.820??? Plan: * Treatment: 2.?Essential hypertension?LAB: Complete Blood Count Auto Diff (Collection Date & Time - 06/06/2024 07:15 AM) ?LAB: Comprehensive [place]. Panel Fast (Collection Date & Time - 06/06/2024 07:15 AM) ?LAB: Lipid Panel ?LAB: PSA,Total (Free>4and<10) (Collection Date & Time - 06/06/2024 07:15 AM) ?LAB: Microalbumin, Random (Collection Date & Time - 06/06/2024 07:15 AM) ?LAB: Hemoglobin A1c (Collection Date & Time - 06/06/2024 07:15 AM) ?LAB: UA ClnCatch+Micro w/rflx Cult (Collection Date & Time - 06/06/2024 07:15 AM) 3.?Prediabetes?LAB: Complete Blood Count Auto Diff (Collection Date & Time - 06/06/2024 07:15 AM) ?LAB: Comprehensive [place]. Panel Fast (Collection Date & Time - 06/06/2024 07:15 AM) ?LAB: Lipid Panel ?LAB: PSA,Total (Free>4and<10) (Collection Date & Time - 06/06/2024 07:15 AM) ?LAB: Microalbumin, Random (Collection Date & Time - 06/06/2024 07:15 AM) ?LAB: Hemoglobin A1c (Collection Date & Time - 06/06/2024 07:15 AM) ?LAB: UA ClnCatch+Micro w/rflx Cult (Collection Date & Time - 06/06/2024 07:15 AM) 4.?Lymphocytosis?LAB: Complete Blood Count Auto Diff (Collection Date & Time - 06/06/2024 07:15 AM) ?LAB: Comprehensive [place]. Panel Fast (Collection Date & Time - 06/06/2024 07:15 AM) ?LAB: Lipid Panel ?LAB: PSA,Total (Free>4and<10) (Collection Date & Time - 06/06/2024 07:15 AM) ?LAB: Microalbumin, Random (Collection Date & Time - 06/06/2024 07:15 AM) ?LAB: Hemoglobin A1c (Collection Date & Time - 06/06/2024 07:15 AM) ?LAB: UA ClnCatch+Micro w/rflx Cult (Collection Date & Time - 06/06/2024 07:15 AM) * Procedure Codes:?29978 VENIP UNCT, ROUTINE* * * The named appointment provid er may or may not be the originator of this progress note, and it is not deemed complete until electronically signed by the appointment provider. Sign off status: Pending * Provider:?Evan Aguirre MD Date:?0 06/06/2024 Generated for Jr garcia/Gregg/eTransmitting on:?06/06/2024 11:33 AM EDT
--- OUTSIDE RECORDS SUMMARY | 2024-06-06 11:33 | XMS_ITS ---
Author Organization Evan Aguirre MD Address [address] [place], [place] [phone] Care Team Providers Care Tanner Rotary Drum Continuous Process Name Role Phone Evan Aguirre Primary Care Provider Allergies No Known Allergies Results Component Value [...] kg/m2 05/01/2024 weight is down 5 pounds [facility] e 12-14-23 Encounters Encounter Location Date Provider Diagnosis Evan Aguirre MD [address] [place], [place] [phone] 05/01/2024 Evan Aguirre Prediabetes R73.09 ; Essential [...] will observe Next Appt Details Provider Name:Evan Lucas ier, 06/13/2024 01:00:00 PM, [address], [address], [place], [place], [phone], Progress Notes * Jeffrey WILSON WDOB:1955 (68 yo M)Acc No.[id number]:05/01/2024 Progress Notes Patient:?Jeffrey WILSON W Provider:?Evan Aguirre MD :1955???Age:68 Y???Sex:Male Hipolito e:05/01/2024 Address:[address] [place], [place] [phone] Subjective: * Chief Complaints: * ???3 month * HPI: ???Symptom(s):?patient is a 69 yo male here for 3 month follow up of bp. gets up and feels a little dizzy at times. * ROS:?General/Constitutional:?Denies?Chills.?Denies?Fatigue.?Denies?Fever.?Denies?Headache.?ENT:?Denies?Sore throat.?Respiratory:?Denies?Cough.?Denies?Shortness of breath at rest.?Denies?Shortness of breath with exertion.?Cardiovascular:?Denies?Chest pain at rest.?Denies?Chest pain with exertion.?Admits?Dizziness.?Denies?Palpitations.?Denies?Shortness of breath.?Gastrointestinal:?Denies?Diarrhea.? * Medical History:? * Surgical History:? * Hospitalization/Major Diagno stic Procedure:? * Medications:?TakingAtorvasta tin Calcium 40 MG Tablet 1 tablet Orally [...] reviewed and reconciled with the patient * Allergies:?N.K.D.A.yes[Aller gies Verified] Objective: * Vitals:?Ht: 66, Wt: 198, BMI :31.95, BP:124/76, Repeat BP:130/75, Wt-k.81. weight is down 5 pounds since 12-14-23. * Examination: ???General Examination: ?GENERAL APPEARANCE:?alert, well hydrated, in no distress.?HEAD:?normocephalic.?SKIN:?abnormal left index finger with an area of abnormal growth. no evidence of any melenoma.?HEART:?no murmurs, rubs, gallops, regular rate and rhythm.?LUNGS:?no wheezes, rales, rhonchi, good air movement, clear to auscultation bilaterally.? Assessment: * Assessment: 1.?Essential hypertension - I10 (Primary)???2.?Prediabetes - R73.09???3.?Nail abnormality - L60.9??? Plan: * Treatment: 2.?Prediabetes?LAB: Hemoglobin A1c (Collection Date & Time - 05/01/2024) ? Value Reference Range ?Hemoglobin A1c 5.1 ?LAB: Glucose, finger stick (Collection Date & Time - 05/01/2024)* ? Value Reference Range ?Value 90 Notes: stable, no need formedication at this time??3.?Nail abnormality? Notes: will observe?? * Procedure Codes:?20749 ASSAY , GLUCOSE, BLOOD QUANT, Modifiers: QW 30841 GLYCATED HEMOGLOBIN TEST, Modifiers: QW * * Sign off status: Completed true * Provider:?Evan Aguirre MD Date:?0 05/01/2024 Generated for Sophiai ng/Fasammig/eTransmitting on:?06/06/2024 11:32 AM EDT History and Physical Notes * HPI (History [...]
--- OUTSIDE RECORDS SUMMARY | 2024-06-06 11:33 | XMS_ITS | Encounter Summary ---
Author Organization [facility] Address [address] [place] [address] Care Team Providers Care Supply Chain Engineer Name Role Phone Unavailable Primary Care Provider Unavailabl e Encounter Details Date Type Department Care Team (Late st Contact Info) Description 05/03/2022 Erroneous Encounter [facility] CONVERSION DEPT [address] [place] [address] Jeffrey Morin MD [address] [place] [address] Social History Tobacco Use Types Packs/Day Years Used Date Smoking Tobacco: Never Assessed Sex and Gender Information Value Date Recorded Sex Assigned at Not on file Legal Sex Male 7:32 AM EST Gender Identity Not on file Sexual Orientation Not on file documented as of this encounter Plan of Treatment Not on file documented as of this encounter Visit Diagnoses Not on filedocumented in this encounter
--- OUTSIDE RECORDS SUMMARY | 2024-06-06 11:33 | XMS_ITS | Clinical Summary ---
Author Organization [facility] Address [address] [place] [address] Care Team Providers Care Assistant Analyst Name Role Phone Unavailable Primary Care Provider Unavailabl e Allergies No known active allergies Encounters Date Type Department Care Team Description 03/17/2024 Refill [facility] [address] [phone] Jeffrey Morin MD Prophylactic antibiotic (Primary Dx) from Last 3 Months Social History Tobacco Use Types Packs/Day Years Used Date Smoking Tobacco: Never Assessed Sex and Gender Information Value Date Recorded Sex Assigned at Not on file Legal Sex Male 7:32 AM EST Gender Identity Not on file Sexual Orientation Not on file Plan of Treatment Health Maintenance Due Date Last Done Comments Hepatitis C Virus Screening 1955 DTaP/Tdap/Td Vaccines (1 - Tdap) 07/04/1974 Pneumococcal Vaccines 50+ (1 of 1 - PCV) 07/04/2005 Zoster (Shingles) Vaccine (1 of 2) 07/04/2005 COVID-19 Vaccine ( - 2023-2 5 season) 2023 RSV Vaccine 60 years and old er and Patients (1 - 1-dose 75+ series) 07/04/2030 Hepatitis B Vaccines Aged Out No long er eligible based on patient's age to complete this topic
--- OUTSIDE RECORDS SUMMARY | 2024-06-06 11:33 | XMS_ITS | Encounter Summary ---
Author Organization [facility] Address [address] [place] [address] Care Team Providers Care Glaze Wiper Name Role Phone Unavailable Primary Care Provider Unavailabl e Encounter Details Date Type Department Care Team (Late st Contact Info) Description 11/24/2021 Erroneous Encounter [facility] CONVERSION DEPT [address] [facility] [place] [phone] Rose Mary Kaplan MD [address] [place] [phone] Social History Tobacco Use Types Packs/Day Years [...]
--- OUTSIDE RECORDS SUMMARY | 2024-06-06 11:33 | XMS_ITS | Encounter Summary ---
Author Organization [facility] Address [address] [place] [address] Care Team Providers Care Camp Cook Name Role Phone Unavailable Primary Care Provider Unavailabl e Encounter Details Date Type Department Care Team (Late st Contact Info) Description 12/14/2021 Erroneous Encounter [facility] CONVERSION DEPT [address] [place] [address] Provider, MD Paz Social History Tobacco Use Types Packs/Day Years [...]
--- OUTSIDE RECORDS SUMMARY | 2024-06-06 11:33 | XMS_ITS | Encounter Summary ---
Author Organization [facility] Address [address] [place] [address] Care Team Providers Care Euclid Operator Name Role Phone Unavailable Primary Care Provider Unavailabl e Encounter Details Date Type Department Care Team (Late st Contact Info) Description 04/27/2021 Erroneous Encounter [facility] CONVERSION DEPT [address] [place] [address] Provider, MD Paz Social History [...]
--- OUTSIDE RECORDS SUMMARY | 2024-06-06 11:33 | XMS_ITS | Patient Health Record ---
Author Organization Evan Aguirre MD Address [address] [place], [place] [id number] Care Team Providers Care Auto Claims Adjuster Name Role Phone Evan Aguirre Primary Care Provider Allergies No Known Allergies Results Component Value Reference Range Notes Hemoglobin A1c Reviewed date:05/01/2024 11:08:58 AM Interpretation: Performing Lab: Notes/Report: Hemoglobin A1c 5.1 Liver Panel Reviewed date:12/07/2023 05:11:47 PM Interpretation: Performing Lab:[facility], [address] [place] [phone] Notes/Report: Bilirubin Total 0.4 0.0-1.0 mg/dL Bilirubin Direct 0.2 0.0-0.5 mg/dL Aspartate Amino Transferase 40 5-37 U/L Alanine Aminotransferase 31 0-40 U/L Total Protein 6.6 6.5-8.0 g/dL Albumin Level 4.1 3.5-5.0 g/dL Alkaline Phosphatase 84 39-117 U/L Glucose Fasting Reviewed date:12/07/2023 02:33:56 PM Interpretation: Performing Lab:[facility], [address] [place] [phone] Notes/Report: Glucose Fasting 112 60-99 mg/dL A fasting glucose from 100-125 mg/dl is considered impaired (pre-diabetes). Lipid Panel with Reflex Reviewed date:12/07/2023 02:34:15 PM Interpretation: Performing Lab:[facility], [address] [place] [phone] Notes/Report: Triglycerides 92 <150 mg/dL Desirable Triglyceride: [...] A1c Reviewed date:12/07/2023 12:44:18 PM Interpretation: Performing Lab:[facility], [address] [place] [phone] Notes/Report: Hemoglobin A1c % 5.4 <6.0 % [...] average glucose, using the formula of the E3T-Qzscluy Average Glucose study (ADAG), Diabetes Care, Vol.31,#8, 2007 Complete Blood Count Auto Di ff (Not yet reviewed by provider) Interpretation: Performing Lab:[facility], [address] [place] [phone] Notes/Report: White Blood Count 5.1 4.8-10.8 X10*3/uL [...] NRBC Abs Auto 0.000 0.0-0.012 X10*3/uL Comprehensive [place]. Panel Fa st (Not yet reviewed by provider) Interpretation: Performing Lab:[facility], [address] [place] [phone] Notes/Report: Sodium 143 135-145 mmol/L Potassium 4.0 [...] t yet reviewed by provider) Interpretation: Performing Lab:[address] [phone] Notes/Report: PSA,Total (Free>4and<10) 0.69 0.00-4.00 ng/mL A [...] ye t reviewed by provider) Interpretation: Performing Lab:[address] [phone] Notes/Report: Creatinine Urine 168.84 Microalbumin Urine 7.0 Microalbum/Creatinine Ratio Ur 4.1 <30 ug/mg cr Albumin/Creatinine Ratio Reference Ranges: Normal: < 30 ug/mg creatinine Microalbuminuria: 30 - 300 ug/mg creatinine Clinical Albuminuria: > 300 ug/mg creatinine Hemoglobin A1c (Not yet revi ewed by provider) Interpretation: Performing Lab:[address] [phone] Notes/Report: Hemoglobin A1c % 5.3 <6.0 % [...] average glucose, using the formula of the S1T-Ywsscqp Average Glucose study (ADAG), Diabetes Care, Vol.31,#8, Sep. 2007 UA ClnCatch+Micro w/rflx Cul t (Not yet reviewed by provider) Interpretation: Performing Lab:[facility], [address] [place] [phone] Notes/Report: Urine, Clean Catch Color Urine Yellow Appearance Urine Clear PH 5.5 5.0-9.0 Glucose Urine UA Negative Negative mg/dL Urine Blood Negative Negative Specific [place] - Urine 1.020 1.005-1.025 Urine Protein Negative Neg-Trace mg/dL Urine Ketones Trace Negative mg/dL Nitrite Urine Negative Negative Leukocyte Esterase Urine Negative Negative RBC Urine 0-2 0-2 /HPF WBC Urine 0-5 0-5 /HPF Squamous Epithelial Cell Urine 0-2 0-2 /HPF Bacteria Urine None Seen None Seen Hyaline Casts Urine 0-2 0-2 /LPF Occult Blood, Stool, Guaiac Reviewed date:06/11/2023 11:15:46 AM Interpretation:Negative Performing Lab: Notes/Report: Negative Occult Blood, Stool, Guaiac Neg Glucose, finger stick Reviewed date:05/01/2024 10:46:25 AM Interpretation: Performing Lab: Notes/Report: Value 90 Hold Gold Reviewed date:12/07/2023 11:58:29 AM Interpretation: Performing Lab:[facility], [address] [place] [phone] Notes/Report: Hold Gold See Note Specimen held untested for 24 hours; Call to request Chemistry testing. Reason For Referral No Information Medications Medication SIG (Take, Route, Frequency, Duration) [...] Vaccine Route Administration Date Status Comme nts Flu Vaccine IM Intramuscular 11/24/2013 Administered Fluarix Quadrivalent IM Intramuscular 03/03/2019 Administe red Fluarix Quadrivalent Unknown 12/28/2019 Administered cv s Covid Vaccine Unknown 05/19/2020 Administered Pfizer Covid Vaccine Unknown 06/09/2020 Administered Pfizer Fluarix Quadrivalent IM Intramuscular 11/30/2020 Administe red SARS-COV-2 Pfizer Unknown 12/22/2020 Administered Fluarix Quadrivalent IM Intramuscular 11/15/2021 Administe red Fluarix Quadrivalent - 150 IM Intramuscular 12/07/2023 Adm inistered Social History Tobacco Use: Social History Observation Description Date Details (start date - stop date) Never Smoker NA - NA Tobacco Use/Smoking Question Answer Notes Patient is a nonsmoker Additional Findings: Tobacco Non-User Cu rrent non-smoker, currently using no form of tobacco Alcohol Screen Question Answer Notes Did you have a drink contain ing alcohol in the past year? Yes How often did you have a dri nk containing alcohol in the past year? 4 or more times a week (4 points) How many drinks did you have on a typical day when you were drinking in the past year? 1 or 2 drinks (0 point) How often did you have 6 or more drinks on one occasion in the past year? Never (0 point) Points 4 Interpretation Positive Problems Problem Type SNOMED Code ICD Code Onset Dates Problem Status W/U Status Risk Notes Problem 11264160 Lymphocytosis (D72.820) Active confirmed Problem 086023551 Low blood sugar reading (E16.2) Active confirmed Problem 701587638 Tubular adenoma of colon (D12.6) Active confirmed Problem 42582290 Essential hypertension (I10) Active confirmed Problem 3565496 Prediabetes (R73.09) Active confirmed Problem 974401130 Non morbid obesi ty due to excess calories (E66.09) Active confirmed Problem CAD (coronary artery disease) (I25.10) Active confirmed Problem 382250027 Nonrheumatic mitral valve regurgitation (I34.0) Active confirmed Vital Signs Blood pressure diastolic 76 mm Hg 05/01/2024 enma ght is down 5 pounds since 12-14-23 Height 66 in 05/01/2024 weight is down 5 pounds since 12-14-23 Blood pressure systolic 124 mm Hg 05/01/2024 tena ht is down 5 pounds since 12-14-23 Weight 198 lbs 05/01/2024 weight is down 5 pounds since 12-14-23 BMI 31.95 kg/m2 05/01/2024 weight is down 5 pounds since 12-14-23 Encounters Encounter Location Date Provider Diagnosis Evan Aguirre MD [address] [place] [id number] 12/07/2023 Evan Aguirre Prediabetes R73.09 ; Encounter for immunization Z23 and CAD (coronary artery disease) I25.10 Evan Aguirre MD [address] [place] [id number] 06/06/2024 Evan Aguirre Blood tests for rout ine general physical examination Z00.00 ; Essential hypertension I10 ; Prediabetes R73.09 and Lymphocytosis D72.820 Evan Aguirre MD [address] [place] [id number] 06/11/2023 Evan Aguirre Atherosclerotic hear t disease of [place] coronary artery without angina pectoris I25.10 ; Adult general medical examination Z00.00 ; CAD (coronary artery disease) I25.10 ; Essential hypertension I10 ; Lentigo L81.4 ; Prediabetes R73.09 ; Lymphocytosis D72.820 ; Encounter for screening colonoscopy Z12.11 and Depression screening Z13.31 Evan Aguirre MD [address] [place] [id number] 12/14/2023 Evan Aguirre Essential hypertensi on I10 ; Prediabetes R73.09 and CAD (coronary artery disease) I25.10 Evan Aguirre MD [address] [place] [id number] 05/01/2024 Evan Aguirre Prediabetes R73.09 ; Essential hypertension I10 and Nail abnormality L60.9 Evan Aguirre MD [address] [place] [id number] 09/07/2023 Evan Aguirre MD [address] [place] [id number] 09/07/2023 Evan Aguirre MD [address] [place], [place] [id number] 05/08/2024 Evan Aguirre Assessments Encounter Date Diagnosis (ICD Code) Assessment Notes Treatment Notes Treatment Clinical Notes Section Notes 12/07/2023 Prediabetes (ICD-10 - R73.09) 12/07/2023 Encounter for immunization (ICD-10 - Z23) 06/06/2024 Blood tests for routine general physical examination (ICD-10 - Z00.00) 06/11/2023 Atherosclerotic heart disease of [place] coronary artery without angina pectoris (ICD-10 - I25.10) patient verbalized understanding of medication and directions for use 06/11/2023 Adult general medical examination (ICD-10 - Z00.00) labs reviewed and discussed with patient 12/14/2023 Essential hypertension (ICD-10 - I10) patient verbalized understanding of medication and directions for use 12/14/2023 Prediabetes (ICD-10 - R73.09) stable, no need for medication at this time 05/01/2024 Prediabetes (ICD-10 - R73.09) stable, no need formedication at this time 05/01/2024 Essential hypertension (ICD-10 - I10) BP is at goal, will continue current regiment and will continue to monitor 12/07/2023 CAD (coronary artery disease) (ICD-10 - I25.10) 06/06/2024 Essential hypertension (ICD-10 - I10) 06/11/2023 CAD (coronary artery disease) (ICD-10 - I25.10) 12/14/2023 CAD (coronary artery disease) (ICD-10 - I25.10) doing well, will continue current regiment 05/01/2024 Nail abnormality (ICD-10 - L60.9) will observe 06/06/2024 Prediabetes (ICD-10 - R73.09) 06/11/2023 Essential hypertension (ICD-10 - I10) stable, will continue current regiment 06/06/2024 Lymphocytosis (ICD-10 - D72.820) 06/11/2023 Lentigo (ICD-10 - L81.4) will observe told to watch for changes 06/11/2023 Prediabetes (ICD-10 - R73.09) stable, no need for medication at ths time 06/11/2023 Lymphocytosis (ICD-10 - D72.820) resolved, will continue to monitor 06/11/2023 Encounter for screening colonoscopy (ICD-10 - Z12.11) guaiac negative 06/11/2023 Depression screening (ICD-10 - Z13.31) negative screen Plan Of Treatment Pending Test Test Name Order Date Electrocardiogram (EKG) 07/16/2015 Electrocardiogram (EKG) 08/23/2017 CARDIOVASCULAR STRESS TEST 02/14/2021 ECHO 11/30/2020 Complete Blood Count Auto Diff Comprehensive [place]. Panel Fast Lipid Panel 06/06/2024 PSA,Total (Free>4and<10) 06/06/2024 Microalbumin, Random 06/06/2024 Hemoglobin A1c 06/06/2024 UA ClnCatch+Micro w/rflx Cult 06/06/2024 Next Appt Details Provider Name:Evan Lucas ier, 06/13/2024 01:00:00 PM, [address] [facility], [address], [place], [place], [id number], Insurance Providers Payer Name Payer Address Payer Phone Subscriber Number Group Number Insured Name Patient Relationship to Insured Coverage Start Date Coverage End Date [facility] [address] [facility] [address] [place] [phone] [id number] Jeffrey Haque Self - patient is the insured MEDICARE NHIC [address] [place] [address] [id number] Jeffrey Haque Self - patient is the insured 9 Medical (General) History Medical History History ICD Code 05/28/14 - colonoscopy w/Dr. Enriquez due in 5 years: colonoscopy 09/21/21 due 5 yrs ( 2026)
--- OUTSIDE RECORDS SUMMARY | 2024-06-06 11:33 | XMS_ITS | Patient Health Record ---
Author Organization [facility] Address [address] [place] [phone] Care Team Providers Care Shape Hand Name Role Phone Carla GUSMAN, Evan Primary Care Provider Rubén Sharif Unavailable [phone] Allergies No Known Allergies Reason For Referral No Information Medications Medication SIG (Take, Route, Frequency, Duration) Notes Start Date End Date Status Aspirin 81 Active Lisinopril-hydroCHLOROt hiazide 10-12.5 MG TK 1 T PO D Oral for 30 Active Advil 2 QD usually Active Immunizations Vaccine Route Administration Date Status Comme nts Influenza Unknown 10/06/2020 Administered Problems Problem Type SNOMED Code ICD Code Onset Dates Problem Status W/U Status Risk Notes Problem Screening for malignant neoplasm of colon (821132620) Encounter for screening for malignant neoplasm of colon (Z12.11) Active confirmed Problem History of polyp of colon (580310717) Personal history of colonic polyps (Z86.010) Active confirmed Problem Pre-procedure evaluation check (077582696) Encounter for other preprocedural examination (Z01.818) Active confirmed Problem Long-term current use of aspirin (801442510088036) Aspirin long-term use (Z79.82) Active confirmed Problem Diverticulosis of colon (120871437) Diverticulosis of colon (K57.30) Active confirmed Plan Of Treatment Pending Test Test Name Order Date Pathology 09/21/2021 Future Test Test Name Order Date COLONOSCOPY 03/17/2014 COLONOSCOPY 06/21/2021 Insurance Providers Payer Name Payer Address Payer Phone Subscriber Number Group Number Insured Name Patient Relationship to Insured Coverage Start Date Coverage End Date [facility] [address] [facility] [place] [phone] [id number] MOLLY WILSON Self - patient is the insured Medical (General) History Medical History History ICD Code Hypertension Denies MA,DM,CVA,Lung disease,renal dise ase Sees Dr. Rios for a heart murmur Colonoscopy 05/2014 with removal of a sma ll tubular adenoma Surgical History Surgery Date(Month/Year) Bilateral knee arthroscopies Left knee replacement in 05/2021
--- OUTSIDE RECORDS SUMMARY | 2024-06-06 11:33 | XMS_ITS | Encounter Summary ---
Author Organization [facility] Address [address] [place] [address] Care Team Providers Care Byproduct Engineer Name Role Phone Unavailable Primary Care Provider Unavailabl e Encounter Details Date Type Department Care Team (Late st Contact Info) Description 01/05/2022 Erroneous Encounter [facility] [address] [place] [address] Provider, MD Paz Social History [...]
== END 2024-06-06 10:30 | disposition home or self-care (01) ==
LOC: HO.LNP 10:29
PROVIDERS: Visit Provider Internal Medicine
DX: Z00.00 Encounter for general adult medical examination without abnormal findings (principal); I10 Essential (primary) hypertension; R73.03 Prediabetes; D72.820 Lymphocytosis (symptomatic); Z12.5 Encounter for screening for malignant neoplasm of prostate
CPT/HCPCS: 80053; 81001; 82043; 82570; 83036; 84153; 85025

== ENCOUNTER 2024-12-12 12:57 | Outpatient (REF) | payer MEDICARE, SELFPAY ==
--- OUTSIDE RECORDS SUMMARY | 2023-09-07 11:21 | XMS_ITS ---
Author Organization Evan Aguirre MD Address [address] [place] [phone] Care Team Providers Care Labor Relations Representative Name Role Phone Evan Aguirre Primary Care Provider Encounters Encounter Location Date Provider Diagnosis Evan Aguirre MD [facility] [address] [place] [phone] 09/07/2023 Evan Aguirre Plan Of Treatment Next Appt Details Provider Name:Evan Lucas ier, 12/19/2024 01:30:00 PM, [address] [place] [address], [address] [place] [address], [phone], Provider Name:Evan Lucas ier, 06/08/2025 07:30:00 AM, [address] [place] [address], [address], [phone], Provider Name:Evan Lucas ier, 06/15/2025 01:45:00 PM, [address] [place] [address], [address], [phone], Progress Notes * Jeffrey WILSON WDOB:1955 (68 yo M)Acc No.[id number]:09/07/2023 Patient: Jeffrey Wallace :1955 A ge:68 Y S ex:Male Address:[address] [place] [id number] * true * Date: Generated for Jr garcia/Gregg/Luis Albertosmitting on: 02/12/2024 03:07 PM EST
--- OUTSIDE RECORDS SUMMARY | 2023-12-07 03:15 | XMS_ITS ---
Author Organization Evan Aguirre MD Address [address] [place], [place] [phone] Care Team Providers Care Conference Coordinator Name Role Phone Evan Aguirre Primary Care Provider Results Component Value Reference Range Notes Liver Panel Reviewed date:12/07/2023 05:11:47 PM Interpretation: Performing Lab:[facility], [address] [place] [phone] Notes/Report: Bilirubin Total 0.4 0.0-1.0 mg/dL Bilirubin Direct 0.2 0.0-0.5 mg/dL Aspartate Amino Transferase 40 5-37 U/L Alanine Aminotransferase 31 0-40 U/L Total Protein 6.6 6.5-8.0 g/dL Albumin Level 4.1 3.5-5.0 g/dL Alkaline Phosphatase 84 39-117 U/L Glucose Fasting Reviewed date:12/07/2023 02:33:56 PM Interpretation: Performing Lab:[facility], [address] [place] [phone] Notes/Report: Glucose Fasting 112 60-99 mg/dL A fasting glucose from 100-125 mg/dl is considered impaired (pre-diabetes). Lipid Panel with Reflex Reviewed date:12/07/2023 02:34:15 PM Interpretation: Performing Lab:[facility], [address] [place] [phone] Notes/Report: Triglycerides 92 <150 mg/dL Desirable Triglyceride: less than 150 mg/dL Borderline High Triglyceride 150-199 mg/dL High Triglyceride: 200-499 mg/dL Very High Triglyceride: greater than or equal to 5OO mg/dL Cholesterol 140 <200 mg/dL Desirable Cholesterol: less than 200 mg/dL Borderline High Cholesterol: 200-239 mg/dL High Cholesterol: greater than 239 mg/dL LDL Cholesterol Calculated 69 <100 mg/dL Desirable LDL: less than 100 mg/dL Near Optimal/Above Optimal LDL: 110-129 mg/dL Borderline High LDL: 130-159 mg/dL High LDL: 160-189 mg/dL Very High LDL: greater than or equal to 190 mg/dL HDL Cholesterol 53 >40 mg/dL Desirable HDL: greater than 40 mg/dL Note: This HDL assay may give artificially low results in patients with liver disease. Hemoglobin A1c Reviewed date:12/07/2023 12:44:18 PM Interpretation: Performing Lab:[facility], [address] [place] [phone] Notes/Report: Hemoglobin A1c % 5.4 <6.0 % Hemoglobin A1C Reference Range Adults: 4.8 - 6.0 % Non diabetic: < 6.0 % Goal: < 7.0 % Additional Action Suggested: > 8.0 % Note: Hemoglobin A1c results are invalid for patients with abnormal amounts of HbF. Blood transfusions may impact the HbA1c concentration in the patient sample. Estimated Average Glucose 108 eAG = Estimated average glucose which is %A1C expressed as average glucose, using the formula of the S0C-[place] Average Glucose study (ADAG), Diabetes Care, Vol.31,#8, Sep. 2007 REASON FOR VISIT FASTING LIPIDS Medications Medication SIG (Take, Route, Frequency, Duration) Notes Start Date End Date Status Paxlovid (300/100) 20 x 150 MG & 10 x 100MG 3 tablets Orally Twice a day for 5 day(s) 09/07/2023 Active Irbesartan-hydroCHLOROthi azide 150-12.5 MG TAKE 1 TABLET BY MOUTH EVERY DAY for 90 Active Aspir-Low 81 MG 1 tablet Orally Once a day for 30 day(s) Active Indomethacin 50 MG TAKE 1 CAPSULE WITH FOOD THREE TIMES A DAY ORALLY 10 DAYS for 10 Not-Taking Atorvastatin Calcium 40 MG 1 tablet Orally Once a day for 90 days 06/11/2023 Active Immunizations Vaccine Route Administration Date Status Comme nts Fluarix Quadrivalent - 150 IM Intramuscular 12/07/2023 Adm inistered Encounters Encounter Location Date Provider Diagnosis Evan Aguirre MD [address] [place] [phone] 12/07/2023 Evan Aguirre Prediabetes R73.09 ; Encounter for immunization Z23 and CAD (coronary artery disease) I25.10 Assessments Encounter Date Diagnosis (ICD Code) Assessment Notes Treatment Notes Treatment Clinical Notes Section Notes 12/07/2023 Prediabetes (ICD-10 - R73.09) 12/07/2023 Encounter for immunization (ICD-10 - Z23) 12/07/2023 CAD (coronary artery disease) (ICD-10 - I25.10) Plan Of Treatment Next Appt Details Provider Name:vEan garcia, 12/19/2024 01:30:00 PM, [address] [place] [address], [phone], Provider Name:Evan garcia, 06/08/2025 07:30:00 AM, [address] [place] [address], [phone], Provider Name:Evan garcia, 06/15/2025 01:45:00 PM, [address] [place] [address], [phone], Progress Notes * Jeffrey WILSON WDOB:1955 (69 yo M)Acc No.[id number]:12/07/2023 Progress Note Patient: Jeffrey CASTANON Provider: Sarita Aguirre MD :1955 A ge:68 Y S ex:Male Date:12/07/2023 Address:[address] [place], [place] [phone] Subjective: * Chief Complaints: * 1 . FASTING LIPIDS. * Medical History: * Medications: T aking Aspir-Low 81 MG Tablet Delayed Release 1 tablet Orally Once a day , Taking Atorvastatin Calcium 40 MG Tablet 1 tablet Orally Once a day , Taking Paxlovid (300/100) 20 x 150 MG & 10 x 100MG Tablet Therapy Pack 3 tablets Orally Twice a day , Taking Irbesartan-hydroCHLOROthiazide 150-12.5 MG Tablet TAKE 1 TABLET BY MOUTH EVERY DAY , Not-Taking/PRN Indomethacin 50 MG Capsule TAKE 1 CAPSULE WITH FOOD THREE TIMES A DAY ORALLY 10 DAYS Objective: * Vitals: Assessment: * Assessment: 1. E ncounter for immunization - Z23 (Primary) 2 . P rediabetes - R73.09? 3. C AD (coronary artery disease) - I25.10 Plan: * Treatment: 2. C AD (coronary artery disease) L AB: Liver Panel (Collection Date & Time - 12/07/2023 08:15 AM) L AB: Glucose Fasting (Collection Date & Time - 12/07/2023 08:15 AM) L AB: Lipid Panel with Reflex (Collection Date & Time - 12/07/2023 08:15 AM) L AB: Hemoglobin A1c (Collection Date & Time - 12/07/2023 08:15 AM) * Immunizations: Fluarix Quadrivalent - 150 : 0.5 mL (Dose No:1) (Route: Intramuscular) given by Karma Mckee , Office Staff on Left Deltoid * Procedure Codes: 9 0656 FLU VACCINE NO PRESERV 3 & >, 02201 IMMUNIZATION ADMIN, 15839 VENIPUNCT, ROUTINE* * * The named appointment provid er may or may not be the originator of this progress note, and it is not deemed complete until electronically signed by the appointment provider. Sign off status: Pending * Provider: Sarita Aguirre MD Date: 02/05/2023 Generated for Jr garcia/Gregg/Marilee on: 02/12/2024 03:08 PM EST
--- OUTSIDE RECORDS SUMMARY | 2023-12-14 04:00 | XMS_ITS ---
Author Organization Evan Aguirre MD Address [address] [place], [place] [phone] Care Team Providers Care Fisheries Technical Officer Name Role Phone Evan Aguirre Primary Care Provider [phone] Allergies No Known Allergies REASON FOR VISIT 6 MO F/U Medications Medication SIG (Take, Route, Frequency, Duration) Notes Start Date End Date Status Irbesartan-hydroCHLOROthi azide 300-12.5 MG 1 tablet Orally Once a day for 90 days 12/14/2023 Active Atorvastatin Calcium 40 MG 1 tablet Orally Once a day for 90 days 06/11/2023 Active Irbesartan-hydroCHLOROthi azide 150-12.5 MG TAKE 1 TABLET BY MOUTH EVERY DAY for 90 Active Indomethacin 50 MG TAKE 1 CAPSULE WITH FOOD THREE TIMES A DAY ORALLY 10 DAYS for 10 Not-Taking Vital Signs Blood pressure systolic 142 mm Hg 12/14/19 24 Blood pressure diastolic 90 mm Hg 024 Height 66 in 12/14/2023 Weight 203 lbs 12/14/2023 BMI 32.76 kg/m2 12/14/2023 weight is down 15 pounds sin 5-6-24 Encounters Encounter Location Date Provider Diagnosis Evan Aguirre MD [address] [place] [phone] 12/14/2023 Evan Aguirre Essential hypertension I10 ; Prediabetes R73.09 and CAD (coronary artery disease) I25.10 Assessments Encounter Date Diagnosis (ICD Code) Assessment Notes Treatment Notes Treatment Clinical Notes Section Notes 12/14/2023 Essential hypertension (ICD-10 - I10) patient verbalized understanding of medication and directions for use 12/14/2023 Prediabetes (ICD-10 - R73.09) stable, no need for medication at this time 12/14/2023 CAD (coronary artery disease) (ICD-10 - I25.10) doing well, will continue current regiment Plan Of Treatment Medication Medication Name Sig Start Date Stop Date Notes Irbesartan-hydroCHLOROthiazi de 300-12.5 MG 1 tablet Orally Once a day for 90 days 12/14/2023 Treatment Notes Assessment Notes Essential hypertension patient verbalize d understanding of medication and directions for use Prediabetes stable, no need for medication at this time CAD (coronary artery disease) doing well , will continue current regiment Next Appt Details Follow Up: 3 Months, Reason: Provider Name:Evan garcia, 12/19/2024 01:30:00 PM, [address] [place] [address], [address], [phone], Provider Name:Evan garcia, 06/08/2025 07:30:00 AM, [address] [place] [address], [address], [phone], Provider Name:Evan garcia, 06/15/2025 01:45:00 PM, [address] [place] [address], [address], [phone], Progress Notes * Jeffrey WILSON WDOB:1955 (68 yo M)Acc No.[id number]:12/14/2023 Progress Notes Patient: Jeffrey Wallace Provider: Sarita Aguirre MD :1955 A ge:68 Y S ex:Male Date:12/14/2023 Address:[address] [place], [place] [phone] Subjective: * Chief Complaints: * 6 MO F/U * HPI: S ymptom(s): patient is a 68 yo male here for 6 month follow up visit, here for follow up of bp. has lost 15 pounds. walks 2 miles with dogs. * ROS: G eneral/Constitutional: Denies C hills. D enies F atigue. D enies F ever. D enies H eadache. E NT: Patient denies d ecreased sense of smell , any loss of taste , sore throat. D enies S ore throat. R espiratory: Denies C ough. D enies S hortness of breath at rest. D enies S hortness of breath with exertion. G astrointestinal: Denies D iarrhea. D enies N ausea. M usculoskeletal: Patient denies m uscle aches. P eripheral Vascular: Patient denies r ed and blue toes. * Medical History: * Surgical History: * Hospitalization/Major Diagno stic Procedure: * Medications: T akingAtorvastatin Calcium 40 MG Tablet 1 tablet Orally Once a dayIrbesartan-hydroCHLOROthiazide 150-12.5 MG Tablet TAKE 1 TABLET BY MOUTH EVERY DAY Taking Atorvastatin Calcium 40 MG Tablet 1 tablet Orally Once a dayTaking Irbesartan-hydroCHLOROthiazide 150-12.5 MG Tablet TAKE 1 TABLET BY MOUTH EVERY DAY Not-Taking/PRNIndomethacin 50 MG Capsule TAKE 1 CAPSULE WITH FOOD THREE TIMES A DAY ORALLY 10 DAYS Not-Taking/PRN Indomethacin 50 MG Capsule TAKE 1 CAPSULE WITH FOOD THREE TIMES A DAY ORALLY 10 DAYS DiscontinuedAspir-Low 81 MG Tablet Delayed Release 1 tablet Orally Once a dayPaxlovid (300/100) 20 x 150 MG & 10 x 100MG Tablet Therapy Pack 3 tablets Orally Twice a dayMedication List reviewed and reconciled with the patientDiscontinued Aspir-Low 81 MG Tablet Delayed Release 1 tablet Orally Once a dayDiscontinued Paxlovid (300/100) 20 x 150 MG & 10 x 100MG Tablet Therapy Pack 3 tablets Orally Twice a dayMedication List reviewed and reconciled with the patient * Allergies: N .K.D.A.yes[Allergies Verified] Objective: * Vitals: H t: 66, Wt:203, BMI:32.76, BP:142/90, Repeat BP:165/90 weight is down 15 pounds since 06-11-23. * P ast Orders: L ab:Lipid Panel with Reflex (Order Date - 12/07/2023) (Collection Date - 12/07/2023) Value Reference Range Triglycerides 92 <150 - mg/dL Cholesterol 140 <200 - mg/dL LDL Cholesterol Calculated 69 <100 - mg/dL HDL Cholesterol 53 >40 - mg/dL L ab:Hemoglobin A1c (Order Date - 12/07/2023) (Collection Date - 12/07/2023) Value Reference Range Hemoglobin A1c % 5.4 <6.0 - % Estimated Average Glucose 108 - mg/dL L ab:Liver Panel (Order Date - 12/07/2023) (Collection Date - 12/07/2023) Value Reference Range Bilirubin Total 0.4 0.0-1.0 - mg/dL Bilirubin Direct 0.2 0.0-0.5 - mg/dL Aspartate Amino Transferase 40 H 5-37 - U/L Alanine Aminotransferase 31 0-40 - U/L Total Protein 6.6 6.5-8.0 - g/dL Albumin Level 4.1 3.5-5.0 - g/dL Alkaline Phosphatase 84 39-117 - U/L L ab:Glucose Fasting (Order Date - 12/07/2023) (Collection Date - 12/07/2023) Value Reference Range Glucose Fasting 112 H 60-99 - mg/dL * Examination: G eneral Examination: GENERAL APPEARANCE: w ell developed, well nourished. HEAD: n ormocephalic. SKIN: g ood turgor. HEART: n o murmurs, rubs, gallops , regular rate and rhythm. LUNGS: n o wheezes, rales, rhonchi , good air movement , clear to auscultation bilaterally. Assessment: * Assessment: 1. E ssential hypertension - I10 (Primary) 2 . P rediabetes - R73.09 3 . C AD (coronary artery disease) - I25.10 Plan: * Treatment: 2. P rediabetes Notes: stable, no need for medication at this time 3. C AD (coronary artery disease) Notes: doing well, will continue current regiment * Procedure Codes: * Follow Up: 3 Months * * Sign off status: Completed true * Provider: Sarita Aguirre MD Date: 02/12/2023 Generated for Jr garcia/Gregg/Marilee on: 02/12/2024 03:08 PM EST History and Physical Notes * HPI (History of Present Illness) Category Sub-Category Detail Notes Category Not es Symptom(s) patient is a 68 yo male here for 6 month follow up visit, here for follow up of bp. has lost 15 pounds. walks 2 miles with dogs. Examination Category Sub-Category Detail Notes Category Not es General Examination GENERAL APPEARANCE: well developed , well nourished HEAD: normocephalic HEART: no murmurs, rubs, ga llops , regular rate and rhythm LUNGS: no wheezes, rales, r honchi , good air movement , clear to auscultation bilaterally SKIN: good turgor
--- OUTSIDE RECORDS SUMMARY | 2024-03-17 11:00 | XMS_ITS ---
Author Organization Evan Aguirre MD Address [address] [place] [phone] Care Team Providers Care Snuff Packing Machine Operator Name Role Phone Evan Aguirre Primary Care Provider Allergies No Known Allergies REASON FOR VISIT 3 MO F/U Encounters Encounter Location Date Provider Diagnosis Evan Aguirre MD [facility] [address] [place] [phone] 03/17/2024 Evan Aguirre Prediabetes R73.09 Assessments Encounter Date Diagnosis (ICD Code) Assessment Notes Treatment Notes Treatment Clinical Notes Section Notes 03/17/2024 Prediabetes (ICD-10 - R73.09) Plan Of Treatment Pending Test Test Name Order Date Hemoglobin A1c 03/17/2024 Glucose, finger stick 03/17/2024 Next Appt Details Provider Name:Evan garcia, 12/19/2024 01:30:00 PM, [address] [place] [address], [address], [phone], Provider Name:Evan garcia, 06/08/2025 07:30:00 AM, [address], [address], [place], [place], [phone], Provider Name:Evan Lucas ier, 06/15/2025 01:45:00 PM, [facility], [address], [place], [place], [phone], Progress Notes * Jeffrey WILSON WDOB:1955 (69 yo M)Acc No.[id number]:03/17/2024 Progress Notes Patient: Jeffrey CASTANON Provider: Sarita Aguirre MD :1955 A ge:68 Y S ex:Male Date:03/17/2024 Address:[address] [place], [place] [phone] Subjective: * Chief Complaints: * 1 . 3 MO F/U. * ROS: G eneral/Constitutional: Denies C hills. D enies F atigue. D enies F ever. D enies H eadache. E NT: Denies S ore throat. R espiratory: Denies C ough. D enies S hortness of breath at rest. D enies S hortness of breath with exertion. G astrointestinal: Denies D iarrhea. D enies N ausea. * Medical History: - colonoscopy w/Dr. Enriquez due in 5 years: colonoscopy 09/21/21 due 5 yrs ( 2026). * Allergies: N .K.D.A. Objective: * Vitals: Assessment: * Assessment: 1. P rediabetes - R73.09 (Primary) Plan: * Treatment: * Procedure Codes: 8 2947 ASSAY, GLUCOSE, BLOOD QUANT, Modifiers: QW , 39345 GLYCATED HEMOGLOBIN TEST, Modifiers: QW * * The named appointment provid er may or may not be the originator of this progress note, and it is not deemed complete until electronically signed by the appointment provider. Sign off status: Pending * Provider: Sarita Aguirre MD Date: 0 03/17/2024 Generated for Sophiai ng/Fasammig/eTransmitting on: 1 02/12/2024 03:08 PM EST
--- OUTSIDE RECORDS SUMMARY | 2024-05-01 05:45 | XMS_ITS ---
Author Organization Evan Aguirre MD Address [address] [place], [place] [phone] Care Team Providers Care Pattern Fitter Name Role Phone Evan Aguirre Primary Care Provider [phone] Allergies No Known Allergies Results Component Value Reference Range Notes Hemoglobin A1c Reviewed date:05/01/2024 11:08:58 AM Interpretation: Performing Lab: Notes/Report: Hemoglobin A1c 5.1 Glucose, finger stick Reviewed date:05/01/2024 10:46:25 AM Interpretation: Performing Lab: Notes/Report: Value 90 REASON FOR VISIT 3 month Medications Medication SIG (Take, Route, Frequency, Duration) Notes Start Date End Date Status Irbesartan-hydroCHLOROthi azide 300-12.5 MG 1 tablet Orally Once a day for 90 days 12/14/2023 Active Indomethacin 50 MG TAKE 1 CAPSULE WITH FOOD THREE TIMES A DAY ORALLY 10 DAYS for 10 Not-Taking Atorvastatin Calcium 40 MG 1 tablet Orally Once a day for 90 days 06/11/2023 Active Vital Signs Blood pressure systolic 124 mm Hg 05/02/19 25 Blood pressure diastolic 76 mm Hg 025 Height 66 in 05/01/2024 Weight 198 lbs 05/01/2024 BMI 31.95 kg/m2 05/01/2024 weight is down 5 pounds [facility] e 118-24 Encounters Encounter Location Date Provider Diagnosis Evan Aguirre MD [address] [place] [address] [place] [phone] 05/01/2024 Evan Aguirre Prediabetes R73.09 ; Essential hypertension I10 and Nail abnormality L60.9 Assessments Encounter Date Diagnosis (ICD Code) Assessment Notes Treatment Notes Treatment Clinical Notes Section Notes 05/01/2024 Prediabetes (ICD-10 - R73.09) stable, no need formedication at this time 05/01/2024 Essential hypertension (ICD-10 - I10) BP is at goal, will continue current regiment and will continue to monitor 05/01/2024 Nail abnormality (ICD-10 - L60.9) will observe Plan Of Treatment Treatment Notes Assessment Notes Prediabetes stable, no need form edication at this time Essential hypertension BP is at goal, wi ll continue current regiment and will continue to monitor Nail abnormality will observe Next Appt Details Provider Name:Evan garcia, 12/19/2024 01:30:00 PM, [address] [place] [address], [address] [place] [address], [phone], Provider Name:Evan garcia, 06/08/2025 07:30:00 AM, [address] [place] [address], [address], [phone], Provider Name:Evan garcia, 06/15/2025 01:45:00 PM, [address] [place] [address], [address], [phone], Progress Notes * Jeffrey WILSON WDOB:1955 (68 yo M)Acc No.[id number]:05/01/2024 Progress Notes Patient: Jeffrey CASTANON Provider: Sarita Aguirre MD :1955 A ge:68 Y S ex:Male Date:05/01/2024 Address:[address] [place], [place] [phone] Subjective: * Chief Complaints: * 3 month * HPI: S ymptom(s): patient is a 69 yo male here for 3 month follow up of bp. gets up and feels a little dizzy at times. * ROS: G eneral/Constitutional: Denies C hills. D enies F atigue. D enies F ever. D enies H eadache. E NT: Denies S ore throat. R espiratory: Denies C ough. D enies S hortness of breath at rest. D enies S hortness of breath with exertion. C ardiovascular: Denies C hest pain at rest. D enies C hest pain with exertion. A dmits D izziness. D enies P alpitations. D enies S hortness of breath. G astrointestinal: Denies D iarrhea. * Medical History: * Surgical History: * Hospitalization/Major Diagno stic Procedure: * Medications: T akingAtorvastatin Calcium 40 MG Tablet 1 tablet Orally Once a day Irbesartan-hydroCHLOROthiazide 300-12.5 MG Tablet 1 tablet Orally Once a day Taking Atorvastatin Calcium 40 MG Tablet 1 tablet Orally Once a day Taking Irbesartan-hydroCHLOROthiazide 300-12.5 MG Tablet 1 tablet Orally Once a day Not-Taking/PRNIndomethacin 50 MG Capsule TAKE 1 CAPSULE WITH FOOD THREE TIMES A DAY ORALLY 10 DAYS Not-Taking/PRN Indomethacin 50 MG Capsule TAKE 1 CAPSULE WITH FOOD THREE TIMES A DAY ORALLY 10 DAYS DiscontinuedIrbesartan-hydroCHLOROthiazide 150- 12.5 MG Tablet TAKE 1 TABLET BY MOUTH EVERY DAY Medication List reviewed and reconciled with the patientDiscontinued Irbesartan-hydroCHLOROthiazide 150-12.5 MG Tablet TAKE 1 TABLET BY MOUTH EVERY DAY Medication List reviewed and reconciled with the patient * Allergies: N .K.D.A.yes[Allergies Verified] Objective: * Vitals: H t: 66, Wt: 198, BMI:31.95, BP:124/76, Repeat BP:130/75, Wt-k.81. weight is down 5 pounds since 12-14-23. * Examination: G eneral Examination: GENERAL APPEARANCE: a lert, well hydrated, in no distress.? HEAD: n ormocephalic. SKIN: a bnormal left index finger with an area of abnormal growth. no evidence of any melenoma. HEART: n o murmurs, rubs, gallops, regular rate and rhythm.? LUNGS: n o wheezes, rales, rhonchi, good air movement, clear to auscultation bilaterally. Assessment: * Assessment: 1. E ssential hypertension - I10 (Primary) 2 . P rediabetes - R73.09 ? 3 . N ail abnormality - L60.9 Plan: * Treatment: 2. P rediabetes L AB: Hemoglobin A1c (Collection Date & Time - 05/01/2024) Value Reference Range H emoglobin A1c 5.1 ?LAB: Glucose, finger stick (Collection Date & Time - 05/01/2024)* Value Reference Range V alue 90 Notes: stable, no need formedication at this time??3.?Nail abnormality? Notes: will observe?? * Procedure Codes: 8 2947 ASSAY, GLUCOSE, BLOOD QUANT, Modifiers: QW 56668 GLYCATED HEMOGLOBIN TEST, Modifiers: QW * * Sign off status: Completed true * Provider: Sarita Aguirre MD Date: 0 05/01/2024 Generated for Jr garcia/Gregg/eTshilpasmitting on: 1 02/12/2024 03:08 PM EST History and Physical Notes * HPI (History of Present Illness) Category Sub-Category Detail Notes Category Not es Symptom(s) patient is a 69 yo male here for 3 month follow up of bp. gets up and feels a little dizzy at times Examination Category Sub-Category Detail Notes Category Not es General Examination GENERAL APPEARANCE: alert, w ell hydrated, in no distress HEAD: normocephalic HEART: no murmurs, rubs, ga llops, regular rate and rhythm LUNGS: no wheezes, rales, r honchi, good air movement, clear to auscultation bilaterally SKIN: abnormal left index finger with an area of abnormal growth. no evidence of any melenoma
--- OUTSIDE RECORDS SUMMARY | 2024-05-08 10:10 | XMS_ITS ---
Author Organization Evan Aguirre MD Address [address] [place] [phone] Care Team Providers Care Log Loader Helper Name Role Phone Evan Aguirre Primary Care Provider REASON FOR VISIT Derm Encounters Encounter Location Date Provider Diagnosis Evan Aguirre MD [address] [facility] [address] [place] [phone] 05/08/2024 Evan Aguirre Plan Of Treatment Next Appt Details Provider Name:Evan Lucas ier, 12/19/2024 01:30:00 PM, [address] [place] [address], [address] [place] [address], [phone], Provider Name:Evan Lucas ier, 06/08/2025 07:30:00 AM, [address] [place] [address], [address], [phone], Provider Name:Evan garcia, 06/15/2025 01:45:00 PM, [address] [place] [address], [address], [phone], Progress Notes * Jeffrey WILSON WDOB:1955 (68 yo M)Acc No.[id number]:05/08/2024 Patient: Jeffrey CASTANON :1955 A ge:68 Y S ex:Male Address:[address] [place] [phone] * true * Date: Generated for Jr garcia/Gregg/Luis Albertosmitting on: 02/12/2024 03:07 PM EST
--- OUTSIDE RECORDS SUMMARY | 2024-06-06 02:15 | XMS_ITS ---
Author Organization Evan Aguirre MD Address [address] [place], [place] [id number] Care Team Providers Care Physician/Allergy/Immunology Name Role Phone Evan Aguirre Primary Care Provider Results Component Value Reference Range Notes Complete Blood Count Auto Di ff Reviewed date:06/06/2024 05:08:12 PM Interpretation: Performing Lab:[facility], [address] [place] [phone] Notes/Report: White Blood Count 5.1 4.8-10.8 X10*3/uL Red Blood Count 4.52 4.60-5.80 X10*6/uL Hemoglobin 13.5 14.0-18.0 g/dl Hematocrit 41.1 42.0-52.0 % Mean Corpuscular Volume 90.9 80.0-98.0 fL Mean Corpuscular Hemoglobin 29.9 27.0-33.0 pg Mean Corpuscular HGB Conc 32.8 31.0-36.0 g/dl Red Cell Distribution Width 12.5 11.0-16.0 % Platelet Count 177 160-400 X10*3/uL Mean Platelet Volume 11.0 9.4-12.4 fL Neutrophils Percent Auto 51.8 45-73 % Imm Gran Pct Auto 0.4 0.0-0.4 % Lymphocytes Percent Auto 33.5 20-40 % Monocytes Percent Auto 8.2 2-11 % Eosinophils Percent Auto 5.3 0-4 % Basophils Percent Auto 0.8 0-2 % NRBC Pct Auto 0.0 0.0-0.2 /100WBC Neutrophils Absolute Auto 2.7 2.0-8.3 x10*3/u L Imm Gran Abs Auto 0.02 0.00-0.03 X10*3/uL Lymphocytes Absolute Auto 1.7 1.2-4.9 X10*3/u L Monocytes Absolute Auto 0.4 0.1-1.2 X10*3/uL Eosinophils Absolute Auto 0.3 0.0-0.4 X10*3/u L Basophils Absolute Auto 0.0 0.0-0.2 X10*3/uL NRBC Abs Auto 0.000 0.0-0.012 X10*3/uL Comprehensive [place]. Panel Fa st Reviewed date:06/06/2024 05:17:25 PM Interpretation: Performing Lab:[facility], [address] [place] [phone] Notes/Report: Sodium 143 135-145 mmol/L Potassium 4.0 3.3-5.1 mmol/L Chloride 107 96-108 mmol/L Carbon Dioxide 29 22-29 mmol/L Anion Gap 11 12-20 Blood Urea Nitrogen 15 9-16 mg/dL Creatinine 0.83 0.5-1.4 mg/dL Estimated Glomerular Filt Rate > 60 Chronic Kidney Disease: Estimated GFR < 60 mL/min/1.73m2 Severe Kidney Disease: Estimated GFR < 15 mL/min/1.73m2 Glucose Fasting 103 60-99 mg/dL A fasting glucose from 100-125 mg/dl is considered impaired (pre-diabetes). Calcium 9.3 8.4-10.2 mg/dL Bilirubin Total 0.4 0.0-1.0 mg/dL Aspartate Amino Transferase 37 5-37 U/L Alanine Aminotransferase 39 0-40 U/L Total Protein 6.4 6.5-8.0 g/dL Albumin Level 4.1 3.5-5.0 g/dL Alkaline Phosphatase 89 39-117 U/L PSA,Total (Free>4and<10) Reviewed date:06/06/2024 05:05:56 PM Interpretation: Performing Lab:[address] [phone] Notes/Report: PSA,Total (Free>4and<10) 0.69 0.00-4.00 ng/mL A Free PSA was not performed: The percentage of Free PSA can be used to enhance the differentiation of prostate cancer from benign prostatic disease in subjects whose PSA levels are between 4.0 and 10.0 ng/mL. For subjects whose PSA levels are below 4.0 or above 10.0 ng/mL, the risk of prostate cancer is determined on the basis of the PSA alone. Therefore the % Free PSA is recommended only for those subjects whose PSA levels are between 4.0 and 10.0 ng/mL. PSA methodology: Zaidi Alinity i Chemiluminescent Microparticle Immunoassay (CMIA) Microalbumin, Random Reviewed date:06/06/2024 05:05:45 PM Interpretation: Performing Lab:[address] [phone] Notes/Report: Creatinine Urine 168.84 Microalbumin Urine 7.0 Microalbum/Creatinine Ratio Ur 4.1 <30 ug/mg cr Albumin/Creatinine Ratio Reference Ranges: Normal: < 30 ug/mg creatinine Microalbuminuria: 30 - 300 ug/mg creatinine Clinical Albuminuria: > 300 ug/mg creatinine Hemoglobin A1c Reviewed date:06/06/2024 05:06:06 PM Interpretation: Performing Lab:[address] [phone] Notes/Report: Hemoglobin A1c % 5.3 <6.0 % Hemoglobin A1C Reference Range Adults: 4.8 - 6.0 % Non diabetic: < 6.0 % Goal: < 7.0 % Additional Action Suggested: > 8.0 % Note: Hemoglobin A1c results are invalid for patients with abnormal amounts of HbF. Blood transfusions may impact the HbA1c concentration in the patient sample. Estimated Average Glucose 105 eAG = Estimated average glucose which is %A1C expressed as average glucose, using the formula of the T3W-Eltpngw Average Glucose study (ADAG), Diabetes Care, Vol.31,#8, 2007 UA ClnCatch+Micro w/rflx Cul t Reviewed date:06/06/2024 05:10:36 PM Interpretation: Performing Lab:[facility], [address] [place] [phone] Notes/Report: Urine, Clean Catch Color Urine Yellow Appearance Urine Clear PH 5.5 5.0-9.0 Glucose Urine UA Negative Negative mg/dL Urine Blood Negative Negative Specific [place] - Urine 1.020 1.005-1.025 Urine Protein Negative Neg-Trace mg/dL Urine Ketones Trace Negative mg/dL Nitrite Urine Negative Negative Leukocyte Esterase Urine Negative Negative RBC Urine 0-2 0-2 /HPF WBC Urine 0-5 0-5 /HPF Squamous Epithelial Cell Urine 0-2 0-2 /HPF Bacteria Urine None Seen None Seen Hyaline Casts Urine 0-2 0-2 /LPF REASON FOR VISIT FASTING LABS Encounters Encounter Location Date Provider Diagnosis Evan Aguirre MD [address] [place] [address] [place] [phone] 06/06/2024 Evan Aguirre Blood tests for routine general physical examination Z00.00 ; Essential hypertension I10 ; Prediabetes R73.09 and Lymphocytosis D72.820 Assessments Encounter Date Diagnosis (ICD Code) Assessment Notes Treatment Notes Treatment Clinical Notes Section Notes 06/06/2024 Blood tests for routine general physical examination (ICD-10 - Z00.00) 06/06/2024 Essential hypertension (ICD-10 - I10) 06/06/2024 Prediabetes (ICD-10 - R73.09) 06/06/2024 Lymphocytosis (ICD-10 - D72.820) Plan Of Treatment Pending Test Test Name Order Date Lipid Panel 06/06/2024 Next Appt Details Provider Name:Evan garcia, 12/19/2024 01:30:00 PM, [address] [place] [address], [address] [place] [address], [phone], Provider Name:Evan garcia, 06/08/2025 07:30:00 AM, [address] [place] [address], [address], [phone], Provider Name:Evan garcia, 06/15/2025 01:45:00 PM, [address] [place] [address], [address], [phone], Progress Notes * Jeffrey WILSON WDOB:1955 (69 yo M)Acc No.[id number]:06/06/2024 Progress Note Patient: Jeffrey CASTANON Provider: Sarita Aguirre MD :1955 A ge:68 Y S ex:Male Date:06/06/2024 Address:[address] [place], [place] [phone] Subjective: * Chief Complaints: * 1 . FASTING LABS. * Medical History: Objective: * Vitals: Assessment: * Assessment: 1. B lood tests for routine general physical examination - Z00.00 (Primary) 2 .?Essential hypertension - I10 3 . P rediabetes - R73.09 4 .?Lymphocytosis - D72.820 Plan: * Treatment: 2. E ssential hypertension L AB: Lipid Panel L AB: Complete Blood Count Auto Diff (Collection Date & Time - 06/06/2024 07:15 AM) L AB: Comprehensive [place]. Panel Fast (Collection Date & Time - 06/06/2024 07:15 AM) L AB: PSA,Total (Free>4and<10) (Collection Date & Time - 06/06/2024 07:15 AM) L AB: Microalbumin, Random (Collection Date & Time - 06/06/2024 07:15 AM) L AB: Hemoglobin A1c (Collection Date & Time - 06/06/2024 07:15 AM) L AB: UA ClnCatch+Micro w/rflx Cult (Collection Date & Time - 06/06/2024 07:15 AM) 3. P rediabetes L AB: Lipid Panel L AB: Complete Blood Count Auto Diff (Collection Date & Time - 06/06/2024 07:15 AM) L AB: Comprehensive [place]. Panel Fast (Collection Date & Time - 06/06/2024 07:15 AM) L AB: PSA,Total (Free>4and<10) (Collection Date & Time - 06/06/2024 07:15 AM) L AB: Microalbumin, Random (Collection Date & Time - 06/06/2024 07:15 AM) L AB: Hemoglobin A1c (Collection Date & Time - 06/06/2024 07:15 AM) L AB: UA ClnCatch+Micro w/rflx Cult (Collection Date & Time - 06/06/2024 07:15 AM) 4. L ymphocytosis L AB: Lipid Panel L AB: Complete Blood Count Auto Diff (Collection Date & Time - 06/06/2024 07:15 AM) L AB: Comprehensive [place]. Panel Fast (Collection Date & Time - 06/06/2024 07:15 AM) L AB: PSA,Total (Free>4and<10) (Collection Date & Time - 06/06/2024 07:15 AM) L AB: Microalbumin, Random (Collection Date & Time - 06/06/2024 07:15 AM) L AB: Hemoglobin A1c (Collection Date & Time - 06/06/2024 07:15 AM) L AB: UA ClnCatch+Micro w/rflx Cult (Collection Date & Time - 06/06/2024 07:15 AM) * Procedure Codes: 3 6415 VENIPUNCT, ROUTINE* * * The named appointment provid er may or may not be the originator of this progress note, and it is not deemed complete until electronically signed by the appointment provider. Sign off status: Pending * Provider: Sarita Aguirre MD Date: 0 06/06/2024 Generated for Jr garcia/Gregg/Marilee on: 02/12/2024 03:08 PM EST
--- OUTSIDE RECORDS SUMMARY | 2024-06-13 08:00 | XMS_ITS ---
Author Organization Evan Aguirre MD Address [address] [place], [place] [id number] Care Team Providers Care E/M Engineer Name Role Phone Evan Aguirre Primary Care Provider [phone] Allergies No Known Allergies Results Component Value Reference Range Notes Occult Blood, Stool, Guaiac Reviewed date:06/13/2024 01:53:28 PM Interpretation:Negative Performing Lab: Notes/Report: Negative Occult Blood, Stool, Guaiac Neg REASON FOR VISIT ANNUAL EXAM Medications Medication SIG (Take, Route, Frequency, Duration) Notes Start Date End Date Status Aspirin 81 81 MG 1 tablet Orally Once a day for 30 day(s) 06/13/2024 Active Indomethacin 50 MG TAKE 1 CAPSULE WITH FOOD THREE TIMES A DAY ORALLY 10 DAYS for 10 Not-Taking Irbesartan-hydroCHLOROthi azide 300-12.5 MG 1 tablet Orally Once a day for 90 days 12/14/2023 Active Atorvastatin Calcium 40 MG TAKE 1 TABLET BY MOUTH EVERY DAY FOR 90 DAYS for 90 Active Social History Tobacco Use: Social History Observation [...] Never (0 point) Points 4 Interpretation Positive Vital Signs Blood pressure systolic 128 mm Hg 06/14/19 25 Blood pressure diastolic 60 mm Hg 025 Height 66 in 06/13/2024 Weight 200 lbs 06/13/2024 BMI 32.28 kg/m2 06/13/2024 Encounters Encounter Location Date Provider Diagnosis Evan Aguirre MD [address] [place] [address] [address] [place], [place] [phone] 06/13/2024 Evan Aguirre Annual physical exam Z00.00 ; Essential hypertension I10 ; Prediabetes R73.09 ; Nail abnormality L60.9 ; CAD (coronary artery disease) I25.10 ; Lymphocytosis D72.820 ; Colon cancer screening Z12.11 and Depression screening Z13.31 Assessments Encounter Date Diagnosis (ICD Code) Assessment Notes Treatment Notes Treatment Clinical Notes Section Notes 06/13/2024 Annual physical exam (ICD-10 - Z00.00) doing great. labs reviewed and discussed with patient 06/13/2024 Essential hypertension (ICD-10 - I10) doing well on meds, will continue current regiment 06/13/2024 Prediabetes (ICD-10 - R73.09) a1c is good, will continue current regiment 06/13/2024 Nail abnormality (ICD-10 - L60.9) is going to dermatology 06/13/2024 CAD (coronary artery disease) (ICD-10 - I25.10) patient verbalized understanding of medication and directions for use 06/13/2024 Lymphocytosis (ICD-10 - D72.820) has resolved 06/13/2024 Colon cancer screening (ICD-10 - Z12.11) guaiac negative 06/13/2024 Depression screening (ICD-10 - Z13.31) negative screen Plan Of Treatment Medication Medication Name Sig Start Date Stop Date Notes Aspirin 81 81 MG 1 tablet Orally Once a day for 30 day(s) 06/13/2024 Treatment Notes Assessment Notes Annual physical exam doing great. labs r shaunawed and discussed with patient Essential hypertension doing well on med s, will continue current regiment Prediabetes a1c is good, will co ntinue current regiment Nail abnormality is going to dermatol ogy CAD (coronary artery disease) patient ve rbalized understanding of medication and directions for use Lymphocytosis has resolved Colon cancer screening guaiac negative Depression screening negative screen Next Appt Details Follow Up: 6 Months, Reason: Provider Name:Evan garcia, 12/19/2024 01:30:00 PM, [address] [place] [address], Suite [facility], [place], [place], [phone], Provider Name:Evan garcia, 06/08/2025 07:30:00 AM, [address] [place] [address], Suite [facility], [place], [place], [phone], Provider Name:Evan garcia, 06/15/2025 01:45:00 PM, [address] [place] [address], [address], [place], [place], [phone], Progress Notes * Jeffrey WILSON WDOB:1955 (68 yo M)Acc No.[id number]:06/13/2024 Progress Notes Patient: Jeffrey CASTANON Provider: Sarita Aguirre MD :1955 A ge:68 Y S ex:Male Date:06/13/2024 Address:[address] [place], [place] [phone] Subjective: * Chief Complaints: * A NNUAL EXAM * HPI: D epression Screening: PHQ-9 L ittle interest or pleasure in doing things N ot at all, F eeling down, depressed, or hopeless N ot at all, T rouble falling or staying asleep, or sleeping too much N ot at all, F eeling tired or having little energy N ot at all, P oor appetite or overeating N ot at all, F eeling bad about yourself or that you are a failure, or have let yourself or your family down N ot at all, T rouble concentrating on things, such as reading the newspaper or watching television N ot at all, M oving or speaking so slowly that other people could have noticed; or the opposite, being so fidgety or restless that you have been moving around a lot more than usual N ot at all, T houghts that you would be better off or of hurting yourself in some way N ot at all, T otal Score 0 . I nterpretation and Intervention D epression Screening Findings N egative, F ollow-Up for Depression : review of PHQ-9 found negative result, no follow-up needed. here for yearly follow up. / doing well. little light headed when getting up from being on the ground. C ommunication Needs: Communication Needs D oes the patient have a hearing impairment N o, D oes the patient have a vision impairment? Y es, I f yes, what is the vision impairment? G lasses, D oes the patient have a cognition impairment? N o. F all Risk: History H ave you had any falls with injury in the past year? N o, H ave you had two or more falls in the past year? N o. S GARTH Questions: SDOH Questions I n the past year have you been worried about losing housing? N o, I n the past year have you or any family members you live with been unable to get any of the following when it was really needed? Check all that apply: N one. S ymptom(s): patient is a 68 yo male here for annual visit with review of recent labs and follow up of chronioc issues. * ROS: G eneral/Constitutional: Change in appetite d enies. C hills d enies. F ever d enies. O phthalmologic: Blurred vision d enies. D ischarge d enies. P ain d enies. E NT: Decreased hearing d enies. S ore throat d enies.?Swollen glands d enies. E ndocrine: Cold intolerance d enies. E xcessive thirst d enies. H eat intolerance d enies. W eight loss d enies. R espiratory: Cough d enies. S hortness of breath at rest d enies. S hortness of breath with exertion d enies. W heezing d enies. C ardiovascular: Chest pain at rest d enies. C hest pain with exertion?denies. I rregular heartbeat d enies. S hortness of breath d enies. ? G astrointestinal: Abdominal pain d enies. C hange in bowel habits d enies. D iarrhea d enies. N ausea d enies. R ectal bleeding d enies. V omiting d enies . G enitourinary: Blood in urine d enies. D ifficulty urinating d enies. F requent urination d enies. M usculoskeletal: Painful joints d enies. W eakness d enies. ? S kin: Dry skin d enies. I tching d enies. D enies?Mole(s), changes in moles, new moles or any lesions of concern. D enies P hotosensitivity. R michael d enies. N eurologic: Dizziness d enies. F ainting d enies. H eadache?denies. * Medical History: * Surgical History: * Hospitalization/Major Diagno stic Procedure: * Family History: F ather: 61 yrs. M other: alive 95 yrs. 3 brother(s) . 2 son(s) , 1 daughter(s) . . Father-Lung Cancer Mother-Healthy. * Social History: T obacco Use: T obacco Use/Smoking P atient is a n onsmoker, A dditional Findings: Tobacco Non-User C urrent non-smoker, currently using no form of tobacco. D rugs/Alcohol: A lcohol Screen D id you have a drink containing alcohol in the past year? Y es, H ow often did you have a drink containing alcohol in the past year? 4 or more times a week (4 points), H ow many drinks did you have on a typical day when you were drinking in the past year? 1 or 2 drinks (0 point), H ow often did you have 6 or more drinks on one occasion in the past year? N ever (0 point), P oints 4 , I nterpretation P ositive. M iscellaneous: C affeine: no, 1 large cup a day. Children: yes. Community involvements: no. Exercise: yes, yard work walking the dogs. Housing: owning. Living with: spouse. Marital status: . Occupation: works full-time. Pets: dogs x2 cat x1. Travel outside of the [place]: yes, Anh. * Medications: T akingIrbesartan-hydroCHLOROthiazide 300-12.5 MG Tablet 1 tablet Orally Once a day Atorvastatin Calcium 40 MG Tablet TAKE 1 TABLET BY MOUTH EVERY DAY FOR 90 DAYS Taking Irbesartan-hydroCHLOROthiazide 300-12.5 MG Tablet 1 tablet Orally Once a day Taking Atorvastatin Calcium 40 MG Tablet TAKE 1 TABLET BY MOUTH EVERY DAY FOR 90 DAYS Not-Taking/PRNIndomethacin 50 MG Capsule TAKE 1 CAPSULE WITH FOOD THREE TIMES A DAY ORALLY 10 DAYS Medication List reviewed and reconciled with the patientNot- Taking/PRN Indomethacin 50 MG Capsule TAKE 1 CAPSULE WITH FOOD THREE TIMES A DAY ORALLY 10 DAYS Medication List reviewed and reconciled with the patient * Allergies: N .K.D.A.yes[Allergies Verified] Objective: * Vitals: H t: 66, Wt: 200, BMI:32.28, BP:128/60, Wt-k.72. * P ast Orders: L ab:UA ClnCatch+Micro w/rflx Cult (Order Date - 06/06/2024) (Collection Date & Time - 06/06/2024 07:15 AM) Value Reference Range Color Urine Yellow - Appearance Urine Clear - PH 5.5 5.0-9.0 - Glucose Urine UA Negative Negative - mg/dL Urine Blood Negative Negative - Specific [place] - Urine 1.020 1.005-1.025 - Urine Protein Negative Neg-Trace - mg/dL Urine Ketones Trace Negative - mg/dL Nitrite Urine Negative Negative - Leukocyte Esterase Urine Negative Negative - RBC Urine 0-2 0-2 - /HPF WBC Urine 0-5 0-5 - /HPF Squamous Epithelial Cell Urine 0-2 0-2 - /HP F Bacteria Urine None Seen None Seen - Hyaline Casts Urine 0-2 0-2 - /LPF L ab:Complete Blood Count Auto Diff (Order Date - 06/06/2024) (Collection Date & Time - 06/06/2024 07:15 AM) Value Reference Range White Blood Count 5.1 4.8-10.8 - X10*3/uL Red Blood Count 4.52 L 4.60-5.80 - X10*6/uL Hemoglobin 13.5 L 14.0-18.0 - g/dl Hematocrit 41.1 L 42.0-52.0 - % Mean Corpuscular Volume 90.9 80.0-98.0 - fL Mean Corpuscular Hemoglobin 29.9 27.0-33.0 - pg Mean Corpuscular HGB Conc 32.8 31.0-36.0 - g/ dl Red Cell Distribution Width 12.5 11.0-16.0 - % Platelet Count 177 160-400 - X10*3/uL Mean Platelet Volume 11.0 9.4-12.4 - fL Neutrophils Percent Auto 51.8 45-73 - % Imm Gran Pct Auto 0.4 0.0-0.4 - % Lymphocytes Percent Auto 33.5 20-40 - % Monocytes Percent Auto 8.2 2-11 - % Eosinophils Percent Auto 5.3 H 0-4 - % Basophils Percent Auto 0.8 0-2 - % NRBC Pct Auto 0.0 0.0-0.2 - /100WBC Neutrophils Absolute Auto 2.7 2.0-8.3 - x10* 3/uL Imm Gran Abs Auto 0.02 0.00-0.03 - X10*3/uL Lymphocytes Absolute Auto 1.7 1.2-4.9 - X10* 3/uL Monocytes Absolute Auto 0.4 0.1-1.2 - X10*3/ uL Eosinophils Absolute Auto 0.3 0.0-0.4 - X10* 3/uL Basophils Absolute Auto 0.0 0.0-0.2 - X10*3/ uL NRBC Abs Auto 0.000 0.0-0.012 - X10*3/uL L ab:Comprehensive [place]. Panel Fast (Order Date - 06/06/2024) (Collection Date & Time - 06/06/2024 07:15 AM) Value Reference Range Sodium 143 135-145 - mmol/L Bilirubin Total 0.4 0.0-1.0 - mg/dL Aspartate Amino Transferase 37 5-37 - U/L Alanine Aminotransferase 39 0-40 - U/L Total Protein 6.4 L 6.5-8.0 - g/dL Albumin Level 4.1 3.5-5.0 - g/dL Alkaline Phosphatase 89 39-117 - U/L Potassium 4.0 3.3-5.1 - mmol/L Chloride 107 96-108 - mmol/L Carbon Dioxide 29 22-29 - mmol/L Anion Gap 11 L 12-20 - Blood Urea Nitrogen 15 9-16 - mg/dL Creatinine 0.83 0.5-1.4 - mg/dL Estimated Glomerular Filt Rate > 60 - Glucose Fasting 103 H 60-99 - mg/dL Calcium 9.3 8.4-10.2 - mg/dL L ab:PSA,Total (Free>4and<10) (Order Date - 06/06/2024) (Collection Date & Time - 06/06/2024 07:15 AM) Value Reference Range PSA,Total (Free>4and<10) 0.69 0.00-4.00 - ng/ mL L ab:Microalbumin, Random (Order Date - 06/06/2024) (Collection Date & Time - 06/06/2024 07:15 AM) Value Reference Range Creatinine Urine 168.84 - mg/dL Microalbumin Urine 7.0 - mg/L Microalbum Creatinine Ratio Ur 4.1 <30 - ug/ mg cr L ab:Hemoglobin A1c (Order Date - 06/06/2024) (Collection Date & Time - 06/06/2024 07:15 AM) Value Reference Range Hemoglobin A1c % 5.3 <6.0 - % Estimated Average Glucose 105 - mg/dL * Examination: G eneral Examination: GENERAL APPEARANCE: w ell developed, well nourished, in no acute distress. HEAD: n ormocephalic, atraumatic. EYES: p upils equal, round, reactive to light and accommodation, sclera non-icteric. EARS: n ormal. ORAL CAVITY: m ucosa moist. THROAT: c lear. NECK/THYROID: n ben supple, full range of motion, no cervical lymphadenopathy, no bruits. SKIN: w arm and dry, no suspicious lesions. HEART: r egular rate and rhythm, S1, S2 normal, no murmurs.? LUNGS: c lear to auscultation bilaterally. ABDOMEN: s oft, nontender, nondistended, bowel sounds present, normal, no organomegaly , no masses palpable. RECTAL EXAM: n ormal tone, no external hemorrhoids, no masses palpable, prostate normal, stool guaiac negative. MALE GENITOURINARY: c ircumcised, no penile lesions or discharge, testes descended bilaterally, no testicular mass. EXTREMITIES: n o clubbing, cyanosis, or edema. NEUROLOGIC: n onfocal, motor strength normal upper and lower extremities, sensory exam intact. Assessment: * Assessment: 1. A nnual physical exam - Z00.00 (Primary) 2 . E ssential hypertension - I10 3 . P rediabetes - R73.09 4 . N ail abnormality - L60.9? 5. C AD (coronary artery disease) - I25.10 6 . L ymphocytosis - D72.820 7 . C olon cancer screening - Z12.11 8 . D epression screening - Z13.31 Plan: * Treatment: 2. E ssential hypertension Notes: doing well on meds, will continue current regiment 3. P rediabetes Notes: a1c is good, will continue current regiment 4. N ail abnormality Notes: is going to dermatology 5. C AD (coronary artery disease) Start Aspirin 81 Tablet Delayed Release, 81 MG, 1 tablet, Orally, Once a day, 30 day(s), 30. ? Notes: patient verbalized understanding of medication and directions for use 6. L ymphocytosis Notes: has resolved 7. C olon cancer screening L AB: Occult Blood, Stool, Guaiac (Collection Date & Time - 06/13/2024) N egative Value Reference Range O ccult Blood, Stool, Guaiac Neg Notes: guaiac negative??8.?Depression screening? Notes: negative screen?? * Procedure Codes: 8 2270 TEST FOR BLOOD, FECES * Preventive Medicine: Counseling: C are goal follow-up plan: C ounseling for abnormal BMI provided?Yes, A praful Normal BMI Follow-up G iving encouragement to exercise. * Follow Up: 6 Months * * Sign off status: Completed true * Provider: Sarita Aguirre MD Date: 0 06/13/2024 Generated for Jr garcia/Gregg/eTransmitting on: 1 02/12/2024 03:09 PM EST History and Physical Notes * HPI (History of Present Illness) Category Sub-Category Detail Notes Category Not es Symptom(s) patient is a 68 yo male here for annual visit with review of recent labs and follow up of chronioc issues. Depression Screening PHQ-9 Little inte rest or pleasure in doing things: Not at all here for yearly follow up. / doing well. little light headed when getting up from being on the ground Feeling down, depressed, or hopeless: No t at all Trouble falling or staying asleep, or sl eeping too much: Not at all Feeling tired or having little energy: N ot at all Poor appetite or overeating: Not at all Feeling bad about yourself o r that you are a failure, or have let yourself or your family down: Not at all Trouble concentrating on thi ngs, such as reading the newspaper or watching television: Not at all Moving or speaking so slowly that other people could have noticed; or the opposite, being so fidgety or restless that you have been moving around a lot more than usual: Not at all Thoughts that you would be b jamel off or of hurting yourself in some way: Not at all Total Score: 0 Interpretation and Intervention Depression Jenifer whitaker Findings: Negative Follow-Up for Depression: : review of PH Q-9 found negative result, no follow-up needed SDOH Questions SDOH Questions In the past year have you been worried about losing housing?: No In the past year have you or any family members you live with been unable to get any of the following when it was really needed? Check all that apply:: None Fall Risk History Have you had any falls with injury i n the past year?: No Have you had two or more falls in the st year?: No Communication Needs Communication Needs Does the patient have a hearing impairment: No Does the patient have a vision impairmen t?: Yes If yes, what is the vision impairment?: Glasses Does the patient have a cognition impair ment?: No Examination Category Sub-Category Detail Notes Category Not es General Examination GENERAL APPEARANCE: well dev eloped, well nourished, in no acute distress HEAD: normocephalic, atrau matic EYES: pupils equal, round, reactive to light and accommodation, sclera non-icteric EARS: normal THROAT: clear NECK/THYROID: neck supple, full ra nge of motion, no cervical lymphadenopathy, no bruits HEART: regular rate and rhy thm, S1, S2 normal, no murmurs LUNGS: clear to auscultatio n bilaterally ABDOMEN: soft, nontender, non distended, bowel sounds present, normal, no organomegaly , no masses palpable NEUROLOGIC: nonfocal, motor stre ngth normal upper and lower extremities, sensory exam intact SKIN: warm and dry, no janey picious lesions EXTREMITIES: no clubbing, cyanosi s, or edema MALE GENITOURINARY: circumcised, no peni le lesions or discharge, testes descended bilaterally, no testicular mass RECTAL EXAM: normal tone, no exte rnal hemorrhoids, no masses palpable, prostate normal, stool guaiac negative ORAL CAVITY: mucosa moist
--- OUTSIDE RECORDS SUMMARY | 2024-10-27 03:44 | XMS_ITS ---
Author Organization Evan Aguirre MD Address [address] [place] [phone] Care Team Providers Care Overnight Caregiver Name Role Phone Evan Aguirre Primary Care Provider REASON FOR VISIT Urgent Care summary rec'd Encounters Encounter Location Date Provider Diagnosis Evan Aguirre MD [address] [place] [phone] 10/27/2024 Evan Aguirre Pneumonia J18.9 Assessments Encounter Date Diagnosis (ICD Code) Assessment Notes Treatment Notes Treatment Clinical Notes Section Notes 10/27/2024 Pneumonia (ICD-10 - J18.9) Plan Of Treatment Pending Test Test Name Order Date XR chest 2V 10/27/2024 Next Appt Details Provider Name:Evan garcia, 12/19/2024 01:30:00 PM, [address] [place] [address], [address], [phone], Provider Name:Evan garcia, 06/08/2025 07:30:00 AM, [address] [place] [address], [address], [phone], Provider Name:Evan Lucas ier, 06/15/2025 01:45:00 PM, [address], [address], [place], [place], [phone], Progress Notes * KATIEJeffrey WDOB:1955 (69 yo M)Acc No.[id number]:10/27/2024 Patient: Jeffrey CASTANON :1955 A ge:69 Y S ex:Male Address:[address] [place] [id number] Subjective: * Chief Complaints: * U rgent Care summary rec'd * Medical History: * Surgical History: * Hospitalization/Major Diagno stic Procedure: * Medications: Objective: * Vitals: * Physical Examination: Assessment: * Assessment: 1. Brynn crane - J18.9 Plan: * Treatment: * Procedure Codes: * true * Date: Generated for Jr garcia/Gregg/Luis Albertosmitting on: 02/12/2024 03:07 PM EST
--- OUTSIDE RECORDS SUMMARY | 2024-12-12 02:45 | XMS_ITS ---
Author Organization Evan Aguirre MD Address [address] [place], [place] [phone] Care Team Providers Care Insolvency Practitioner Name Role Phone Evan Aguirre Primary Care Provider Results Component Value Reference Range Notes Lipid Panel with Reflex (Not yet reviewed by provider) Interpretation: Performing Lab:[facility], [address] [place] [phone] Notes/Report: Triglycerides 81 <150 mg/dL Desirable Triglyceride: less than 150 mg/dL Borderline High Triglyceride 150-199 mg/dL High Triglyceride: 200-499 mg/dL Very High Triglyceride: greater than or equal to 5OO mg/dL Cholesterol 129 <200 mg/dL Desirable Cholesterol: less than 200 mg/dL Borderline High Cholesterol: 200-239 mg/dL High Cholesterol: greater than 239 mg/dL LDL Cholesterol Calculated 64 <100 mg/dL Desirable LDL: less than 100 mg/dL Near Optimal/Above Optimal LDL: 110-129 mg/dL Borderline High LDL: 130-159 mg/dL High LDL: 160-189 mg/dL Very High LDL: greater than or equal to 190 mg/dL HDL Cholesterol 49 >40 mg/dL Desirable HDL: greater than 40 mg/dL Note: This HDL assay may give artificially low results in patients with liver disease. Liver Panel Reviewed date:12/12/2024 02:04:14 PM Interpretation: Performing Lab:[facility], [address] [place] [phone] Notes/Report: Bilirubin Total 0.6 0.0-1.0 mg/dL Bilirubin Direct 0.2 0.0-0.5 mg/dL Aspartate Amino Transferase 39 5-37 U/L Alanine Aminotransferase 26 0-40 U/L Total Protein 6.7 6.5-8.0 g/dL Albumin Level 4.4 3.5-5.0 g/dL Alkaline Phosphatase 94 39-117 U/L Glucose Fasting Reviewed date:12/12/2024 02:06:59 PM Interpretation: Performing Lab:[facility], [address] [place] [phone] Notes/Report: Glucose Fasting 101 60-99 mg/dL A fasting glucose from 100-125 mg/dl is considered impaired (pre-diabetes). Hemoglobin A1c Reviewed date:12/12/2024 02:09:49 PM Interpretation: Performing Lab:[facility], [address] [place] [phone] Notes/Report: Hemoglobin A1c % 5.3 <6.0 % [...] average glucose, using the formula of the N3T-Beawrzd Average Glucose study (ADAG), Diabetes Care, Vol.31,#8, Sep. 2007 REASON FOR VISIT FASTING LIPIDS Encounters Encounter Location Date Provider Diagnosis Evan Aguirre MD [address] [place] [address] Drive [address] [place], [place] [phone] 12/12/2024 Evan Aguirre Prediabetes R73.09 and CAD (coronary artery disease) I25.10 Assessments Encounter Date Diagnosis (ICD Code) Assessment Notes Treatment Notes Treatment Clinical Notes Section Notes 12/12/2024 Prediabetes (ICD-10 - R73.09) 12/12/2024 CAD (coronary artery disease) (ICD-10 - I25.10) Plan Of Treatment Pending Test Test Name Order Date Lipid Panel with Reflex 12/12/2024 Next Appt Details Provider Name:Evan Lucas ier, 12/19/2024 01:30:00 PM, [address] [facility], [address], [place], [place], [phone], Provider Name:Evan Lucas ier, 06/08/2025 07:30:00 AM, [address], [place], [place], [phone], Provider Name:Evan Lucas ier, 06/15/2025 01:45:00 PM, [address] [facility], Suite [facility], [place], [place], [phone], Progress Notes * Jeffrey WILSON WDOB:1955 (69 yo M)Acc No.[id number]:12/12/2024 Progress Note Patient: Jeffrey CASTANON Provider: Sarita Aguirre MD :1955 A ge:69 Y S ex:Male Date:12/12/2024 Address:[address] [place], [place] [phone] Subjective: * Chief Complaints: * 1 . FASTING LIPIDS. * Medical History: Objective: * Vitals: Assessment: * Assessment: 1. P rediabetes - R73.09 (Primary) 2 . C AD (coronary artery disease) - I25.10 Plan: * Treatment: 2. C AD (coronary artery disease) L AB: Lipid Panel with Reflex (Collection Date & Time - 12/12/2024 07:45 AM) L AB: Liver Panel (Collection Date & Time - 12/12/2024 07:45 AM) L AB: Glucose Fasting (Collection Date & Time - 12/12/2024 07:45 AM) L AB: Hemoglobin A1c (Collection Date & Time - 12/12/2024 07:45 AM) * Procedure Codes: 3 6415 VENIPUNCT, ROUTINE* * * The named appointment provid er may or may not be the originator of this progress note, and it is not deemed complete until electronically signed by the appointment provider. Sign off status: Pending * Provider: Sarita Aguirre MD Date: 02/12/2024 Generated for Jr Sesay/Marilee on: 02/12/2024 03:08 PM EST
[2024-12-12 13:37] LABS: Alanine Aminotransferase 26 U/L (0-40); Albumin Level 4.4 g/dL (3.5-5.0); Alkaline Phosphatase 94 U/L (39-117); Aspartate Amino Transferase 39 U/L (5-37); Cholesterol 129 mg/dL (<200); HDL Cholesterol 49 mg/dL (>40); Total Protein 6.7 g/dL (6.5-8.0); Triglycerides 81 mg/dL (<150)
[2024-12-12 13:47] LABS: Reflex LDLD? No
--- OUTSIDE RECORDS SUMMARY | 2024-12-12 15:08 | XMS_ITS | Patient Health Record ---
Author Organization Evan Aguirre MD Address [address] [place], [place] [id number] Care Team Providers Care Equipment Scheduler Name Role Phone Evan Aguirre Primary Care Provider [phone] Allergies No Known Allergies Results Component Value Reference Range Notes Hemoglobin A1c Reviewed date:05/01/2024 11:08:58 AM Interpretation: Performing Lab: Notes/Report: Hemoglobin A1c 5.1 Complete Blood Count Auto Di ff Reviewed date:06/06/2024 05:08:12 PM Interpretation: Performing Lab:[facility], [address] [place] [phone] Notes/Report: White Blood Count 5.1 4.8-10.8 X10*3/uL [...] NRBC Abs Auto 0.000 0.0-0.012 X10*3/uL Comprehensive [place]. Panel Fa st Reviewed date:06/06/2024 05:17:25 PM Interpretation: Performing Lab:[facility], [address] [place] [phone] Notes/Report: Sodium 143 135-145 mmol/L Potassium 4.0 [...] (Free>4and<10) Reviewed date:06/06/2024 05:05:56 PM Interpretation: Performing Lab:[address] [phone] Notes/Report: PSA,Total (Free>4and<10) 0.69 0.00-4.00 ng/mL A [...] Random Reviewed date:06/06/2024 05:05:45 PM Interpretation: Performing Lab:[address] [phone] Notes/Report: Creatinine Urine 168.84 Microalbumin Urine 7.0 Microalbum/Creatinine Ratio Ur 4.1 <30 ug/mg cr Albumin/Creatinine Ratio Reference Ranges: Normal: < 30 ug/mg creatinine Microalbuminuria: 30 - 300 ug/mg creatinine Clinical Albuminuria: > 300 ug/mg creatinine Hemoglobin A1c Reviewed date:06/06/2024 05:06:06 PM Interpretation: Performing Lab:[address] [phone] Notes/Report: Hemoglobin A1c % 5.3 <6.0 % [...] average glucose, using the formula of the [id number]-[id number] Average Glucose study (ADAG), Diabetes Care, Vol.31,#8, Sep. 2007 UA ClnCatch+Micro w/rflx Cul t Reviewed date:06/06/2024 05:10:36 PM Interpretation: Performing Lab:[facility], [address] [place] [phone] Notes/Report: Urine, Clean Catch Color Urine Yellow Appearance Urine Clear PH 5.5 5.0-9.0 Glucose Urine UA Negative Negative mg/dL Urine Blood Negative Negative Specific [place] - Urine 1.020 1.005-1.025 Urine Protein Negative Neg-Trace mg/dL Urine Ketones Trace Negative mg/dL Nitrite Urine Negative Negative Leukocyte Esterase Urine Negative Negative RBC Urine 0-2 0-2 /HPF WBC Urine 0-5 0-5 /HPF Squamous Epithelial Cell Urine 0-2 0-2 /HPF Bacteria Urine None Seen None Seen Hyaline Casts Urine 0-2 0-2 /LPF Lipid Panel with Reflex (Not yet reviewed by provider) Interpretation: Performing Lab:[facility], [address] [place] [phone] Notes/Report: Triglycerides 81 <150 mg/dL Desirable Triglyceride: [...] Panel Reviewed date:12/12/2024 02:04:14 PM Interpretation: Performing Lab:[facility], [address] [place] [phone] Notes/Report: Bilirubin Total 0.6 0.0-1.0 mg/dL Bilirubin Direct 0.2 0.0-0.5 mg/dL Aspartate Amino Transferase 39 5-37 U/L Alanine Aminotransferase 26 0-40 U/L Total Protein 6.7 6.5-8.0 g/dL Albumin Level 4.4 3.5-5.0 g/dL Alkaline Phosphatase 94 39-117 U/L Glucose Fasting Reviewed date:12/12/2024 02:06:59 PM Interpretation: Performing Lab:[address] [phone] Notes/Report: Glucose Fasting 101 60-99 mg/dL A fasting glucose from 100-125 mg/dl is considered impaired (pre-diabetes). Hemoglobin A1c Reviewed date:12/12/2024 02:09:49 PM Interpretation: Performing Lab:[address] [phone] Notes/Report: Hemoglobin A1c % 5.3 <6.0 % [...] average glucose, using the formula of the G7B-Nhmmppe Average Glucose study (ADAG), Diabetes Care, Vol.31,#8, Sep. 2007 Glucose, finger stick Reviewed date:05/01/2024 10:46:25 AM Interpretation: Performing Lab: Notes/Report: Value 90 Occult Blood, Stool, Guaiac Reviewed date:06/13/2024 01:53:28 PM Interpretation:Negative Performing Lab: Notes/Report: Negative Occult Blood, Stool, Guaiac Neg Hold Gold Reviewed date:12/12/2024 02:04:28 PM Interpretation: Performing Lab:[address] [phone] Notes/Report: Hold Gold See Note Specimen held [...] DAY FOR 90 DAYS for 90 Active Immunizations Vaccine Route Administration Date Status [...] Problem Status W/U Status Risk Notes Problem 48532447 Lymphocytosis (D72.820) Active confirmed Problem 794249238 Low blood sugar reading (E16.2) Active confirmed Problem 232096050 Tubular adenoma of colon (D12.6) Active confirmed Problem 14781434 Essential hypertension (I10) Active confirmed Problem 1620553 Prediabetes (R73.09) Active confirmed Problem 359408318 Non morbid obesity due to excess calories (E66.09) Active confirmed Problem Coronary artery disease (54243048) CAD (coronary artery disease) (I25.10) Active confirmed Problem 302832645 Nonrheumatic mitral valve regurgitation (I34.0) Active confirmed Vital Signs Blood pressure diastolic 60 mm Hg 06/13/2024 Height 66 in 06/13/2024 Blood pressure systolic 128 mm Hg 06/13/2024 Weight 200 lbs 06/13/2024 BMI 32.28 kg/m2 06/13/2024 Encounters Encounter Location Date Provider Diagnosis Evan Aguirre MD [address] [place] [id number] 06/06/2024 Evan Aguirre Blood tests for routine general physical examination Z00.00 ; Essential hypertension I10 ; Prediabetes R73.09 and Lymphocytosis D72.820 Evan Aguirre MD [address] [place] [id number] 12/12/2024 Evan Aguirre Prediabetes R73.09 and CAD (coronary artery disease) I25.10 Evan Aguirre MD [address] [id number] 12/14/2023 Evan Aguirre Essential hypertension I10 ; Prediabetes R73.09 and CAD (coronary artery disease) I25.10 Evan Aguirre MD [address] [place] [id number] 05/01/2024 Evan Aguirre Prediabetes R73.09 ; Essential hypertension I10 and Nail abnormality L60.9 Evan Aguirre MD [address] [id number] 06/13/2024 Evan Aguirre Annual physical exam Z00.00 ; Essential hypertension I10 ; Prediabetes R73.09 ; Nail abnormality L60.9 ; CAD (coronary artery disease) I25.10 ; Lymphocytosis D72.820 ; Colon cancer screening Z12.11 and Depression screening Z13.31 Evan Aguirre MD [address] [place] [id number] 05/08/2024 Evan Aguirre MD [address] [id number] 10/27/2024 Evan Aguirre Pneumonia J18.9 Assessments Encounter Date Diagnosis (ICD Code) Assessment Notes Treatment Notes Treatment Clinical Notes Section Notes 06/06/2024 Blood tests for routine general physical examination (ICD-10 - Z00.00) 12/12/2024 Prediabetes (ICD-10 - R73.09) 12/14/2023 Essential hypertension (ICD-10 - I10) patient verbalized understanding of medication and directions for use 12/14/2023 Prediabetes (ICD-10 - R73.09) stable, no need for medication at this time 05/01/2024 Prediabetes (ICD-10 - R73.09) stable, no need formedication at this time 05/01/2024 Essential hypertension (ICD-10 - I10) BP is at goal, will continue current regiment and will continue to monitor 06/13/2024 Annual physical exam (ICD-10 - Z00.00) doing great. labs reviewed and discussed with patient 06/13/2024 Essential hypertension (ICD-10 - I10) doing well on meds, will continue current regiment 10/27/2024 Pneumonia (ICD-10 - J18.9) 06/06/2024 Essential hypertension (ICD-10 - I10) 12/12/2024 CAD (coronary artery disease) (ICD-10 - I25.10) 12/14/2023 CAD (coronary artery disease) (ICD-10 - I25.10) doing well, will continue current regiment 05/01/2024 Nail abnormality (ICD-10 - L60.9) will observe 06/13/2024 Prediabetes (ICD-10 - R73.09) a1c is good, will continue current regiment 06/06/2024 Prediabetes (ICD-10 - R73.09) 06/13/2024 Nail abnormality (ICD-10 - L60.9) is going to dermatology 06/06/2024 Lymphocytosis (ICD-10 - D72.820) 06/13/2024 CAD (coronary artery disease) (ICD-10 - I25.10) patient verbalized understanding of medication and directions for use 06/13/2024 Lymphocytosis (ICD-10 - D72.820) has resolved 06/13/2024 Colon cancer screening (ICD-10 - Z12.11) guaiac negative 06/13/2024 Depression screening (ICD-10 - Z13.31) negative screen Plan Of Treatment Pending Test Test Name Order Date Electrocardiogram (EKG) 07/16/2015 Electrocardiogram (EKG) 08/23/2017 CARDIOVASCULAR STRESS TEST 02/14/2021 ECHO 11/30/2020 Lipid Panel 06/06/2024 Lipid Panel with Reflex 12/12/2024 XR chest 2V 10/27/2024 Next Appt Details Provider Name:Evan Lucas ier, 12/19/2024 01:30:00 PM, [address] [facility], [address], [place], [place], [id number], Provider Name:Evan Lucas ier, 06/08/2025 07:30:00 AM, [address] [facility], [address], [place], [place], [phone], Provider Name:Evan Lucas ier, 06/15/2025 01:45:00 PM, [address] [facility], [address], [place], [place], [phone], Insurance Providers Payer Name Payer Address Payer Phone Subscriber Number Group Number Insured Name Patient Relationship to Insured Coverage Start Date Coverage End Date [facility] [address] [facility] [address] [place] [phone] [id number] Jeffrey Haque Self - patient is the insured [employer] [address] [place] [address] [id number] Jeffrey Haque Self - patient is the insured 9 Medical (General) History Medical History History ICD Code 05/28/ - colonoscopy w/Dr. Enriquez due in 5 years: colonoscopy 09/21/21 due 5 yrs ( 2026)
--- OUTSIDE RECORDS SUMMARY | 2024-12-12 15:09 | XMS_ITS | Patient Health Record ---
Author Organization [facility] Address [address] [place] [phone] Care Team Providers Care Training And Development Director Name Role Phone Carla GUSMAN, Evan Primary Care Provider Rubén Sharif Unavailable [phone] Allergies No Known Allergies Reason For Referral No Information Medications Medication SIG (Take, Route, Frequency, Duration) Notes Start Date End Date Status Aspirin 81 Active Lisinopril-hydroCHLOROt hiazide 10-12.5 MG TK 1 T PO D Oral; Duration: 30 Active Advil 2 QD usually Active Immunizations Vaccine Route Administration Date Status Comme nts Influenza Unknown 10/06/2020 Administered Problems Problem Type SNOMED Code ICD Code Onset Dates Problem Status W/U Status Risk Notes Problem Screening for malignant neoplasm of colon (415802213) Encounter for screening for malignant neoplasm of colon (Z12.11) Active confirmed Problem History of polyp of colon (situation) (814518142) Personal history of colonic polyps (Z86.010) Active confirmed Problem Pre-procedure evaluation check (179172737) Encounter for other preprocedural examination (Z01.818) Active confirmed Problem Long-term current use of aspirin (547091074888486) Aspirin long-term use (Z79.82) Active confirmed Problem Diverticulosis of colon (403734794) Diverticulosis of colon (K57.30) Active confirmed Plan Of Treatment Pending Test Test Name Order Date Pathology 09/21/2021 Future Test Test Name Order Date COLONOSCOPY 03/17/2014 COLONOSCOPY 06/21/2021 Insurance Providers Payer Name Payer Address Payer Phone Subscriber Number Group Number Insured Name Patient Relationship to Insured Coverage Start Date Coverage End Date [facility] [address] [facility] [place], [place] [phone] [id number] MOLLY WILSON Self - patient is the insured Medical (General) History Medical History History ICD Code Hypertension Denies [place],DM,CVA,Lung disease,renal dise ase Sees Dr. Rios for a heart murmur Colonoscopy 05/2014 with removal of a sma ll tubular adenoma Surgical History Surgery Date(Month/Year) Bilateral knee arthroscopies Left knee replacement in 05/2021
== END 2024-12-12 12:58 | disposition home or self-care (01) ==
LOC: HO.LNP 12:57
PROVIDERS: Visit Provider Internal Medicine
DX: I25.10 Atherosclerotic heart disease of native coronary artery without angina pectoris (principal); R73.09 Other abnormal glucose
CPT/HCPCS: 80061; 80076; 82947; 83036